=== PATIENT | female | born 1970 | race Caucasian/White ===

== ENCOUNTER 2017-08-14 18:20 | Inpatient (IN) | payer MEDICAID ==
[~2017-08-14] VITALS: Ht 175.3 cm; Wt 59.0 kg
[~2017-08-14 18:20] MED LIST: ASPI-1265 PO; FLUO20CA39 PO; INSU100V36 SQ; LANTUS SUBCUT
[2017-08-14] MEDS ORDERED: acetaminophen 325mg tablet PO STA (21:37)
[2017-08-14] MEDS ORDERED: CefTRIAXone 2gm/NS 100ml IVPB 100 ML IV ONE (21:40)
[2017-08-14] MEDS ORDERED: normal saline 1000ML IV soln IV ONE (21:40)
[2017-08-14] MEDS ORDERED: piperacillin/tazo 3.375gm/50ml 50 ML IV ONE (21:40)
[2017-08-14] MEDS ORDERED: CEFTRIAXONE IV ONE (21:55)
[2017-08-14] MEDS ORDERED: DEXTROSE IV ONE (21:55)
[2017-08-14 21:59] LABS: BASOPHILS % (AUTO) 0.3 % (0-1); EOSINOPHILS # (AUTO) 0.2 X10'3 (0-0.9); EOSINOPHILS % (AUTO) 1.6 % (0-6); HEMATOCRIT 26.7 % (35.0-45.0); HEMOGLOBIN 8.8 g/dl (12.0-16.0); LYMPHOCYTES # (AUTO) 1.5 X10'3 (1.1-4.8); LYMPHOCYTES % (AUTO) 11.4 % (21-51); MEAN CORPUSCULAR HEMOGLOBIN 26.1 PG (27.0-31.0); MEAN CORPUSCULAR HGB CONC 33.1 % (33.0-36.5); MEAN CORPUSCULAR VOLUME 78.7 FL (78-98); MEAN PLATELET VOLUME 6.9 FL (7.4-10.4); MONOCYTES # (AUTO) 0.5 X10'3 (0-0.9); MONOCYTES % (AUTO) 4.3 % (2-12); NEUTROPHILS # (AUTO) 10.5 X10'3 (1.8-7.7); NEUTROPHILS % (AUTO) 82.4 % (42-75); PLATELET COUNT 418 X10'3 (140-440); RED BLOOD COUNT 3.39 X10'6 (4.20-5.60); RED CELL DISTRIBUTION WIDTH 15.1 % (11.5-14.5); WHITE BLOOD COUNT 12.8 X10'3 (4.5-11.0)
[2017-08-14 22:11] LABS: PARTIAL THROMBOPLASTIN TIME 26 SECONDS (22-32); PROTHROMBIN TIME 10.7 SECONDS (9.0-12.0)
[2017-08-14 22:14] LABS: ALANINE AMINOTRANSFERASE 10 U/L (12-78); ALBUMIN 2.4 G/DL (3.4-5.0); ALBUMIN/GLOBULIN RATIO 0.5 (1.1-1.5); ALKALINE PHOSPHATASE 110 IU/L (46-116); ANION GAP 11 (8-16); ASPARTATE AMINO TRANSFERASE 0 U/L (10-37); BILIRUBIN,TOTAL 0.4 MG/DL (0.1-1.0); BLOOD UREA NITROGEN 29 MG/DL (7-18); BUN/CREATININE RATIO 16.3 (6.6-38.0); CALCIUM 8.6 MG/DL (8.5-10.1); CHLORIDE 98 MMOL/L (99-107); CREATININE 1.78 MG/DL (0.40-0.90); GLUCOSE 446 MG/DL (70-104); POTASSIUM 4.3 MMOL/L (3.5-5.1); SODIUM 134 MMOL/L (135-145); TOTAL CARBON DIOXIDE 25.5 MMOL/L (24-32); TOTAL PROTEIN 6.9 G/DL (6.4-8.2); eGFR 31 ML/MIN
[2017-08-14] MEDS ORDERED: HYDR-565 PO (22:16)
[2017-08-15 00:49] LABS: COLOR,URINE Yellow (Yellow); GLUCOSE, URINE >=1000 mg/dl (Neg); KETONES,URINE Trace mg/dl (Neg); LEUKOCYTE ESTERASE ,URINE Negative (Neg); NITRITES, URINE Negative (Neg); OCCULT BLOOD,URINE Negative (Neg); PROTEIN,URINE 100 mg/dl (Neg)
[2017-08-15] MEDS ORDERED: insulin glargine (Lantus) pen - multi-dose SQ ONE ×2 (00:50→02:05)
[2017-08-15 00:51] LABS: UA COLLECTION TYPE STRAIGHT CATH
[2017-08-15 01:11] LABS: FINE GRANULAR CAST 0-3 /LPF (NEGATIVE); SQUAMOUS EPITHELIAL CELL,UR FEW /LPF (FEW)
[2017-08-15 01:14] LABS: AMORPHOUS URATES 3+; CLARITY,URINE SLIGHTLY CLOUDY (Clear)
[2017-08-15 01:15] LABS: BACTERIA,URINE NONE SEEN /HPF (Neg); RBC,URINE 0-2 /HPF (0-2); WBC,URINE 0-4 /HPF (0-4)
[2017-08-15 01:16] LABS: RENAL CELLS, URINE FEW /HPF
[2017-08-15 01:21] LABS: URINE HCG NEGATIVE (NEG)
[2017-08-15] MEDS ORDERED: Insulin Detemir pen SQ ONE ×2 (01:34→02:05)
[2017-08-15] MEDS ORDERED: iohexol 300mg/ml 100ml inj. ONE (01:38)
[2017-08-15] MEDS ORDERED: insulin regular, human 10 units/0.1 ml syringe SQ ONE (01:45)
[2017-08-15] MEDS ORDERED: MESSAGE TO PHARMACY PO ONE (03:15)
[2017-08-15] MEDS ORDERED: dextrose ORAL solution 15 GM/59 ML bottle PO PRN (03:15)
[2017-08-15] MEDS ORDERED: vancomycin/NS 1 GM ADD-VANTAGE 250 ML IV ONE (03:15)
[2017-08-15] MEDS ORDERED: ondansetron/PF 4mg/2ml inj IV PRN (03:15)
[2017-08-15] MEDS ORDERED: acetaminophen 325mg tablet PO PRN (03:15)
[2017-08-15] MEDS ORDERED: mag hydrox/Alum hydrox/simeth 30ml oral suspension PO PRN (03:15)
[2017-08-15] MEDS ORDERED: glucagon, human recombinant 1mg kit SUBCUT PRN (03:15)
[2017-08-15] MEDS ORDERED: magnesium hydroxide 30ml (MOM) UD suspension PO PRN (03:15)
[2017-08-15] MEDS ORDERED: dextrose 50%-water 50ml dispensing syringe IV PRN ×2 (03:15)
[2017-08-15] MEDS ORDERED: normal saline 1000ml 1,000 ML IV SCH (03:15)
[2017-08-15] MEDS: piperacillin/tazo 3.375gm/50ml 50 ML IV SCH ×4 (03:54→20:46)
[2017-08-15 04:50] VITALS: BP 136/78
[2017-08-15 06:40] VITALS: BP 117/68
[2017-08-15] MEDS: vancomycin/NS 1 GM ADD-VANTAGE 250 ML IV SCH (07:18)
[2017-08-15] MEDS: FLUoxetine 20mg capsule PO SCH (08:00)
[2017-08-15] MEDS: insulin Lispro (HumaLOG) vial - multi-dose SQ SCH (09:03)
[2017-08-15 10:50] VITALS: BP 131/73
[2017-08-15] MEDS ORDERED: dextrose 5%-water 1,000 ML IV SCH (11:10)
[2017-08-15] MEDS: dextrose 5%-normal saline 1,000 ML IV SCH ×2 (11:29→23:44)
[2017-08-15] MEDS: acetaminophen 325mg tablet PO PRN (11:33)
[2017-08-15 17:35] LABS: HEMOGLOBIN A1C 11.7 % (4.5-6.2)
[2017-08-15 19:38] VITALS: BP 107/71
[2017-08-15 20:00] VITALS: BP 107/71
[2017-08-15] MEDS: Insulin Detemir pen SQ SCH (20:46)
[2017-08-15] MEDS ORDERED: diphenhydrAMINE 25mg capsule PO PRN (20:55)
[2017-08-15] MEDS ORDERED: HYDROcodone/acetaminophen 5mg/325mg tablet PO PRN (22:35)
[2017-08-15] MEDS: HYDROcodone/acetaminophen 10/325mg tab PO PRN (23:46)
[2017-08-16] VITALS (15 sets, daily range): BP systolic 107–136; BP diastolic 56–94
[2017-08-16] MEDS: acetaminophen 325mg tablet PO PRN (00:22)
[2017-08-16] MEDS: piperacillin/tazo 3.375gm/50ml 50 ML IV SCH ×2 (02:45→07:21)
[2017-08-16 05:56] LABS: BASOPHILS % (AUTO) 0.2 % (0-1); EOSINOPHILS # (AUTO) 0.2 X10'3 (0-0.9); EOSINOPHILS % (AUTO) 4.1 % (0-6); HEMATOCRIT 22.4 % (35.0-45.0); HEMOGLOBIN 7.4 g/dl (12.0-16.0); LYMPHOCYTES # (AUTO) 0.6 X10'3 (1.1-4.8); LYMPHOCYTES % (AUTO) 10.7 % (21-51); MEAN CORPUSCULAR HEMOGLOBIN 26.2 PG (27.0-31.0); MEAN CORPUSCULAR VOLUME 79.2 FL (78-98); MEAN PLATELET VOLUME 7.3 FL (7.4-10.4); MONOCYTES # (AUTO) 0.4 X10'3 (0-0.9); MONOCYTES % (AUTO) 6.4 % (2-12); NEUTROPHILS # (AUTO) 4.5 X10'3 (1.8-7.7); NEUTROPHILS % (AUTO) 78.6 % (42-75); PLATELET COUNT 305 X10'3 (140-440); RED BLOOD COUNT 2.83 X10'6 (4.20-5.60); RED CELL DISTRIBUTION WIDTH 15.4 % (11.5-14.5); WHITE BLOOD COUNT 5.7 X10'3 (4.5-11.0)
[2017-08-16 07:20] LABS: ALBUMIN 1.7 G/DL (3.4-5.0); ANION GAP 13 (8-16); BLOOD UREA NITROGEN 26 MG/DL (7-18); BUN/CREATININE RATIO 14.7 (6.6-38.0); CALCIUM 7.5 MG/DL (8.5-10.1); CHLORIDE 103 MMOL/L (99-107); CREATININE 1.77 MG/DL (0.40-0.90); POTASSIUM 3.9 MMOL/L (3.5-5.1); SODIUM 137 MMOL/L (135-145); TOTAL CARBON DIOXIDE 20.9 MMOL/L (24-32); eGFR 31 ML/MIN
[2017-08-16] MEDS: LACTOBACILLUS RHAMNOSUS GG 15 billion unit sprinkle caps PO SCH (07:20)
[2017-08-16] MEDS: HYDROcodone/acetaminophen 10/325mg tab PO PRN ×2 (07:20→23:09)
[2017-08-16] MEDS: dextrose 5%-normal saline 1,000 ML IV SCH (07:21)
[2017-08-16] MEDS: vancomycin/NS 1 GM ADD-VANTAGE 250 ML IV SCH (07:21)
[2017-08-16] MEDS: FLUoxetine 20mg capsule PO SCH (07:21)
[2017-08-16 07:48] LABS: GLUCOSE 513 MG/DL (70-104)
[2017-08-16 09:56] LABS: C DIFF ANTIGEN SEE COMMENTS (NEGATIVE); C DIFF SPECIMEN=DIARRHEA? ACCEPTABLE; C DIFFICILE TOXINS A&B NEGATIVE (Neg)
[2017-08-16 11:37] LABS: C DIFF TOXIN (LAMP) POSITIVE (NEG)
[2017-08-16] MEDS: vancomycin 125mg/5ml ORAL solution 5ml UD bottle PO SCH ×2 (14:00→20:34)
[2017-08-16] MEDS: insulin Lispro (HumaLOG) vial - multi-dose SQ SCH ×3 (14:20→23:07)
[2017-08-16] MEDS ORDERED: LIDOcaine 1% 30ml vial 30 ML ONE (14:27)
[2017-08-16] MEDS ORDERED: BUPIVAcaine/PF 2.5 mg/ml (0.25%) 30ml vial ONE (14:27)
[2017-08-16] MEDS ORDERED: insulin regular, human 10 units/0.1 ml syringe IV ONE ×2 (16:45→19:10)
[2017-08-16] MEDS ORDERED: insulin regular, human 10 units/0.1 ml syringe ONE (16:45)
[2017-08-16] MEDS ORDERED: meperidine/PF 25mg/ml syringe IV ONE (17:50)
[2017-08-16] MEDS ORDERED: ringers solution, lacted 1,000 ML IV SCH (18:32)
[2017-08-16] MEDS ORDERED: ondansetron/PF 4mg/2ml inj IV PRN (18:35)
[2017-08-16] MEDS ORDERED: HYDROmorphone 1 mg/ml syringe IV PRN ×2 (18:35)
[2017-08-16] MEDS ORDERED: fentaNYL/PF 50MCG/1 ML 2ML syringe ONE ×3 (18:35→18:53)
[2017-08-16] MEDS ORDERED: meperidine/PF 25mg/ml syringe IV PRN ×2 (18:35)
[2017-08-16] MEDS ORDERED: midazolam 2 mg/2 ml injection ONE ×2 (18:38→18:39)
[2017-08-16] MEDS ORDERED: LIDOcaine 1%/PF (10mg/ml) 5ml vial ONE (18:39)
[2017-08-16] MEDS ORDERED: propofol inj 20 ML IV ONE (18:39)
[2017-08-16] MEDS: normal saline 1000ml 1,000 ML IV SCH ×2 (20:40→23:11)
[2017-08-16] MEDS: Insulin Detemir pen SQ SCH (23:05)
[2017-08-17] VITALS: BP 122/70
[2017-08-17] MEDS: vancomycin 125mg/5ml ORAL solution 5ml UD bottle PO SCH ×4 (02:05→20:07)
[2017-08-17 04:00] VITALS: BP 119/70
[2017-08-17 05:24] LABS: BASOPHILS % (AUTO) 0.7 % (0-1); EOSINOPHILS # (AUTO) 0.3 X10'3 (0-0.9); EOSINOPHILS % (AUTO) 4.6 % (0-6); HEMATOCRIT 22.5 % (35.0-45.0); HEMOGLOBIN 7.5 g/dl (12.0-16.0); LYMPHOCYTES # (AUTO) 1.4 X10'3 (1.1-4.8); LYMPHOCYTES % (AUTO) 21.4 % (21-51); MEAN CORPUSCULAR HEMOGLOBIN 26.3 PG (27.0-31.0); MEAN CORPUSCULAR HGB CONC 33.4 % (33.0-36.5); MEAN CORPUSCULAR VOLUME 78.8 FL (78-98); MEAN PLATELET VOLUME 6.9 FL (7.4-10.4); MONOCYTES # (AUTO) 0.6 X10'3 (0-0.9); MONOCYTES % (AUTO) 8.4 % (2-12); NEUTROPHILS # (AUTO) 4.4 X10'3 (1.8-7.7); NEUTROPHILS % (AUTO) 64.9 % (42-75); PLATELET COUNT 381 X10'3 (140-440); RED BLOOD COUNT 2.85 X10'6 (4.20-5.60); RED CELL DISTRIBUTION WIDTH 15.7 % (11.5-14.5); WHITE BLOOD COUNT 6.8 X10'3 (4.5-11.0)
[2017-08-17] MEDS: HYDROcodone/acetaminophen 10/325mg tab PO PRN ×5 (05:29→22:45)
[2017-08-17 05:49] LABS: ALBUMIN 1.7 G/DL (3.4-5.0); ANION GAP 7 (8-16); BLOOD UREA NITROGEN 26 MG/DL (7-18); BUN/CREATININE RATIO 18.4 (6.6-38.0); CALCIUM 7.6 MG/DL (8.5-10.1); CHLORIDE 107 MMOL/L (99-107); CREATININE 1.41 MG/DL (0.40-0.90); GLUCOSE 279 MG/DL (70-104); POTASSIUM 3.6 MMOL/L (3.5-5.1); SODIUM 137 MMOL/L (135-145); TOTAL CARBON DIOXIDE 23.5 MMOL/L (24-32); eGFR 40 ML/MIN
[2017-08-17] MEDS: vancomycin/NS 1 GM ADD-VANTAGE 250 ML IV SCH (08:53)
[2017-08-17] MEDS: FLUoxetine 20mg capsule PO SCH (08:53)
[2017-08-17] MEDS: LACTOBACILLUS RHAMNOSUS GG 15 billion unit sprinkle caps PO SCH (08:53)
[2017-08-17] MEDS: insulin Lispro (HumaLOG) vial - multi-dose SQ SCH ×3 (09:03→20:07)
[2017-08-17] MEDS: normal saline 1000ml 1,000 ML IV SCH ×2 (11:02→21:31)
[2017-08-17 18:00] VITALS: BP 114/69
[2017-08-17] MEDS: Insulin Detemir pen SQ SCH (22:59)
[2017-08-18] VITALS (10 sets, daily range): BP systolic 115–143; BP diastolic 62–87
[2017-08-18] MEDS: vancomycin 125mg/5ml ORAL solution 5ml UD bottle PO SCH ×4 (03:15→19:40)
[2017-08-18] MEDS: HYDROcodone/acetaminophen 10/325mg tab PO PRN ×5 (03:52→20:51)
[2017-08-18] MEDS: normal saline 1000ml 1,000 ML IV SCH ×2 (06:30→16:30)
[2017-08-18] MEDS ORDERED: VANCOMYCIN LEVEL IV ONE (06:30)
[2017-08-18 07:52] LABS: BASOPHILS % (AUTO) 0.3 % (0-1); EOSINOPHILS # (AUTO) 0.3 X10'3 (0-0.9); EOSINOPHILS % (AUTO) 4.1 % (0-6); HEMATOCRIT 25.5 % (35.0-45.0); HEMOGLOBIN 9.1 g/dl (12.0-16.0); LYMPHOCYTES # (AUTO) 1.4 X10'3 (1.1-4.8); LYMPHOCYTES % (AUTO) 21.7 % (21-51); MEAN CORPUSCULAR HEMOGLOBIN 28.8 PG (27.0-31.0); MEAN CORPUSCULAR HGB CONC 35.8 % (33.0-36.5); MEAN CORPUSCULAR VOLUME 80.5 FL (78-98); MEAN PLATELET VOLUME 6.8 FL (7.4-10.4); MONOCYTES # (AUTO) 0.1 X10'3 (0-0.9); MONOCYTES % (AUTO) 2.2 % (2-12); NEUTROPHILS # (AUTO) 4.6 X10'3 (1.8-7.7); NEUTROPHILS % (AUTO) 71.7 % (42-75); PLATELET COUNT 387 X10'3 (140-440); RED BLOOD COUNT 3.17 X10'6 (4.20-5.60); RED CELL DISTRIBUTION WIDTH 15.6 % (11.5-14.5); WHITE BLOOD COUNT 6.4 X10'3 (4.5-11.0)
[2017-08-18] MEDS: FLUoxetine 20mg capsule PO SCH (08:00)
[2017-08-18] MEDS: LACTOBACILLUS RHAMNOSUS GG 15 billion unit sprinkle caps PO SCH (08:00)
[2017-08-18] MEDS: vancomycin/NS 1 GM ADD-VANTAGE 250 ML IV SCH (08:01)
[2017-08-18 08:11] LABS: ALBUMIN 1.8 G/DL (3.4-5.0); ANION GAP 7 (8-16); BLOOD UREA NITROGEN 12 MG/DL (7-18); BUN/CREATININE RATIO 11.7 (6.6-38.0); CALCIUM 7.6 MG/DL (8.5-10.1); CHLORIDE 110 MMOL/L (99-107); CREATININE 1.03 MG/DL (0.40-0.90); GLUCOSE 302 MG/DL (70-104); POTASSIUM 4.1 MMOL/L (3.5-5.1); SODIUM 140 MMOL/L (135-145); TOTAL CARBON DIOXIDE 22.7 MMOL/L (24-32); VANCOMYCIN,TROUGH 9.4 UG/ML (6.0-14.0); eGFR 58 ML/MIN
[2017-08-18] MEDS: insulin Lispro (HumaLOG) vial - multi-dose SQ SCH ×2 (09:39→13:31)
[2017-08-18] MEDS: sulfamethoxazole/trimethoprim DS (800/160mg) tablet PO SCH ×2 (11:53→19:40)
[2017-08-18] MEDS: dextrose ORAL solution 15 GM/59 ML bottle PO PRN ×2 (11:58→12:21)
[2017-08-18] MEDS: Insulin Detemir pen SQ SCH (20:48)
[2017-08-19] VITALS: BP 130/81
[2017-08-19] MEDS: vancomycin 125mg/5ml ORAL solution 5ml UD bottle PO SCH ×4 (01:10→20:38)
[2017-08-19] MEDS: HYDROcodone/acetaminophen 10/325mg tab PO PRN ×5 (01:11→20:39)
[2017-08-19] MEDS: normal saline 1000ml 1,000 ML IV SCH ×3 (02:30→21:22)
[2017-08-19 03:47] LABS: BASOPHILS # (AUTO) 0.1 X10'3 (0-0.2); BASOPHILS % (AUTO) 1.2 % (0-1); EOSINOPHILS # (AUTO) 0.2 X10'3 (0-0.9); EOSINOPHILS % (AUTO) 3.8 % (0-6); HEMATOCRIT 24.2 % (35.0-45.0); HEMOGLOBIN 8.3 g/dl (12.0-16.0); LYMPHOCYTES # (AUTO) 1.9 X10'3 (1.1-4.8); MEAN CORPUSCULAR HEMOGLOBIN 27.8 PG (27.0-31.0); MEAN CORPUSCULAR HGB CONC 34.2 % (33.0-36.5); MEAN CORPUSCULAR VOLUME 81.3 FL (78-98); MEAN PLATELET VOLUME 6.5 FL (7.4-10.4); MONOCYTES # (AUTO) 0.5 X10'3 (0-0.9); MONOCYTES % (AUTO) 7.7 % (2-12); NEUTROPHILS # (AUTO) 3.5 X10'3 (1.8-7.7); NEUTROPHILS % (AUTO) 56.3 % (42-75); PLATELET COUNT 361 X10'3 (140-440); RED BLOOD COUNT 2.97 X10'6 (4.20-5.60); RED CELL DISTRIBUTION WIDTH 15.7 % (11.5-14.5); WHITE BLOOD COUNT 6.2 X10'3 (4.5-11.0)
[2017-08-19 04:14] LABS: ALBUMIN 1.9 G/DL (3.4-5.0); ANION GAP 6 (8-16); BLOOD UREA NITROGEN 11 MG/DL (7-18); BUN/CREATININE RATIO 10.7 (6.6-38.0); CALCIUM 7.8 MG/DL (8.5-10.1); CHLORIDE 109 MMOL/L (99-107); CREATININE 1.03 MG/DL (0.40-0.90); GLUCOSE 261 MG/DL (70-104); POTASSIUM 3.7 MMOL/L (3.5-5.1); SODIUM 140 MMOL/L (135-145); TOTAL CARBON DIOXIDE 24.7 MMOL/L (24-32); eGFR 58 ML/MIN
[2017-08-19] MEDS: FLUoxetine 20mg capsule PO SCH (07:47)
[2017-08-19] MEDS: LACTOBACILLUS RHAMNOSUS GG 15 billion unit sprinkle caps PO SCH (07:47)
[2017-08-19] MEDS: sulfamethoxazole/trimethoprim DS (800/160mg) tablet PO SCH (07:48)
[2017-08-19 08:09] VITALS: BP 125/76
[2017-08-19] MEDS: insulin Lispro (HumaLOG) vial - multi-dose SQ SCH ×4 (09:33→22:07)
[2017-08-19] MEDS ORDERED: fluconazole 100mg tablet PO ONE (10:50)
[2017-08-19 12:23] VITALS: BP 134/76
[2017-08-19] MEDS: NUT.TX.GLUC.INTOLER,LAC-FR,REG (BOOST GLUCOSE CONTROL) 237 ML PO SCH (18:10)
[2017-08-19 19:30] VITALS: BP 133/78
[2017-08-19] MEDS: Insulin Detemir pen SQ SCH (22:09)
[2017-08-20] VITALS: BP 136/79
[2017-08-20] MEDS: HYDROcodone/acetaminophen 10/325mg tab PO PRN ×4 (00:52→21:08)
[2017-08-20] MEDS: vancomycin 125mg/5ml ORAL solution 5ml UD bottle PO SCH ×4 (02:21→21:08)
[2017-08-20] MEDS: dextrose ORAL solution 15 GM/59 ML bottle PO PRN (04:40)
[2017-08-20 05:05] LABS: ALBUMIN 2.3 G/DL (3.4-5.0); ANION GAP 8 (8-16); BLOOD UREA NITROGEN 18 MG/DL (7-18); BUN/CREATININE RATIO 15.1 (6.6-38.0); CALCIUM 7.9 MG/DL (8.5-10.1); CHLORIDE 107 MMOL/L (99-107); CREATININE 1.19 MG/DL (0.40-0.90); GLUCOSE 60 MG/DL (70-104); POTASSIUM 3.9 MMOL/L (3.5-5.1); SODIUM 141 MMOL/L (135-145); TOTAL CARBON DIOXIDE 25.9 MMOL/L (24-32); eGFR 49 ML/MIN
[2017-08-20 05:43] LABS: BASOPHILS % (AUTO) 0.4 % (0-1); EOSINOPHILS # (AUTO) 0.2 X10'3 (0-0.9); EOSINOPHILS % (AUTO) 2.8 % (0-6); HEMATOCRIT 24.1 % (35.0-45.0); HEMOGLOBIN 8.4 g/dl (12.0-16.0); LYMPHOCYTES # (AUTO) 2.1 X10'3 (1.1-4.8); LYMPHOCYTES % (AUTO) 27.9 % (21-51); MEAN CORPUSCULAR HEMOGLOBIN 28.1 PG (27.0-31.0); MEAN CORPUSCULAR HGB CONC 34.7 % (33.0-36.5); MEAN CORPUSCULAR VOLUME 81.2 FL (78-98); MEAN PLATELET VOLUME 6.3 FL (7.4-10.4); MONOCYTES # (AUTO) 0.5 X10'3 (0-0.9); MONOCYTES % (AUTO) 6.3 % (2-12); NEUTROPHILS # (AUTO) 4.7 X10'3 (1.8-7.7); NEUTROPHILS % (AUTO) 62.6 % (42-75); PLATELET COUNT 396 X10'3 (140-440); RED BLOOD COUNT 2.97 X10'6 (4.20-5.60); RED CELL DISTRIBUTION WIDTH 15.6 % (11.5-14.5); WHITE BLOOD COUNT 7.5 X10'3 (4.5-11.0)
[2017-08-20] MEDS: fluconazole 100mg tablet PO SCH (06:54)
[2017-08-20] MEDS: LACTOBACILLUS RHAMNOSUS GG 15 billion unit sprinkle caps PO SCH (06:54)
[2017-08-20] MEDS: FLUoxetine 20mg capsule PO SCH (06:55)
[2017-08-20 07:33] VITALS: BP 123/75
[2017-08-20] MEDS: NUT.TX.GLUC.INTOLER,LAC-FR,REG (BOOST GLUCOSE CONTROL) 237 ML PO SCH ×4 (08:00→19:00)
[2017-08-20] MEDS: insulin Lispro (HumaLOG) vial - multi-dose SQ SCH ×3 (08:48→21:17)
[2017-08-20] MEDS: normal saline 1000ml 1,000 ML IV SCH ×2 (08:49→19:44)
[2017-08-20 11:21] VITALS: BP 131/82
[2017-08-20 20:00] VITALS: BP 129/83
[2017-08-20] MEDS: Insulin Detemir pen SQ SCH (21:16)
[2017-08-21] VITALS: BP 144/93
[2017-08-21] MEDS: vancomycin 125mg/5ml ORAL solution 5ml UD bottle PO SCH ×3 (01:31→14:24)
[2017-08-21] MEDS: HYDROcodone/acetaminophen 10/325mg tab PO PRN ×4 (01:35→17:29)
[2017-08-21 06:00] VITALS: BP 134/82
[2017-08-21 06:00] LABS: BASOPHILS % (AUTO) 0.4 % (0-1); EOSINOPHILS # (AUTO) 0.3 X10'3 (0-0.9); HEMOGLOBIN 8.2 g/dl (12.0-16.0); LYMPHOCYTES # (AUTO) 1.6 X10'3 (1.1-4.8); LYMPHOCYTES % (AUTO) 25.1 % (21-51); MEAN CORPUSCULAR HEMOGLOBIN 27.5 PG (27.0-31.0); MEAN CORPUSCULAR HGB CONC 34.1 % (33.0-36.5); MEAN CORPUSCULAR VOLUME 80.7 FL (78-98); MEAN PLATELET VOLUME 6.5 FL (7.4-10.4); MONOCYTES # (AUTO) 0.3 X10'3 (0-0.9); MONOCYTES % (AUTO) 5.1 % (2-12); NEUTROPHILS # (AUTO) 4.2 X10'3 (1.8-7.7); NEUTROPHILS % (AUTO) 65.4 % (42-75); PLATELET COUNT 340 X10'3 (140-440); RED BLOOD COUNT 2.98 X10'6 (4.20-5.60); RED CELL DISTRIBUTION WIDTH 15.7 % (11.5-14.5); WHITE BLOOD COUNT 6.4 X10'3 (4.5-11.0)
[2017-08-21 06:14] LABS: ALBUMIN 2.2 G/DL (3.4-5.0); ANION GAP 9 (8-16); BLOOD UREA NITROGEN 17 MG/DL (7-18); BUN/CREATININE RATIO 13.1 (6.6-38.0); CHLORIDE 108 MMOL/L (99-107); GLUCOSE 209 MG/DL (70-104); POTASSIUM 4.7 MMOL/L (3.5-5.1); SODIUM 139 MMOL/L (135-145); TOTAL CARBON DIOXIDE 22.2 MMOL/L (24-32); eGFR 44 ML/MIN
[2017-08-21] MEDS: fluconazole 100mg tablet PO SCH (08:08)
[2017-08-21] MEDS: normal saline 1000ml 1,000 ML IV SCH ×2 (08:08→15:43)
[2017-08-21] MEDS: LACTOBACILLUS RHAMNOSUS GG 15 billion unit sprinkle caps PO SCH (08:08)
[2017-08-21] MEDS: FLUoxetine 20mg capsule PO SCH (08:08)
[2017-08-21] MEDS: insulin Lispro (HumaLOG) vial - multi-dose SQ SCH (10:03)
[2017-08-21 11:00] VITALS: BP 149/86
[2017-08-21] MEDS: NUT.TX.GLUC.INTOLER,LAC-FR,REG (BOOST GLUCOSE CONTROL) 237 ML PO SCH (13:00)
[2017-08-22] MEDS ORDERED: VANCOMYCIN LEVEL IV ONE (18:30)
== END 2017-08-21 17:48 | disposition home or self-care (01) | DRG 710 ==
LOC: ER 18:21 → ED HOLD 08-15 03:15 → SUR 3N 08-15 03:52
PROVIDERS: ADMIT Internal Medicine; ATTEND Family Medicine
PROC: 0KBF0ZZ Excision of Right Trunk Muscle, Open Approach (ICD-10-PCS; principal; 2017-08-16 18:31)
PROC: 30233N1 Transfusion of Nonautologous Red Blood Cells into Peripheral Vein, Percutaneous Approach (ICD-10-PCS; 2017-08-18)
DX: A41.9 Sepsis, unspecified organism (principal); N17.9 Acute kidney failure, unspecified; E11.22 Type 2 diabetes mellitus with diabetic chronic kidney disease; A04.72 Enterocolitis due to Clostridium difficile, not specified as recurrent; D62 Acute posthemorrhagic anemia; E11.65 Type 2 diabetes mellitus with hyperglycemia; E11.40 Type 2 diabetes mellitus with diabetic neuropathy, unspecified; L02.31 Cutaneous abscess of buttock; L03.031 Cellulitis of right toe; J44.9 Chronic obstructive pulmonary disease, unspecified; I10 Essential (primary) hypertension; N18.9 Chronic kidney disease, unspecified; F32.9 Major depressive disorder, single episode, unspecified; Z72.0 Tobacco use; Z79.4 Long term (current) use of insulin; Z82.49 Family history of ischemic heart disease and other diseases of the circulatory system; Z86.14 Personal history of Methicillin resistant Staphylococcus aureus infection; Z87.01 Personal history of pneumonia (recurrent); Z88.5 Allergy status to narcotic agent; Z88.6 Allergy status to analgesic agent; Z79.82 Long term (current) use of aspirin; Z79.899 Other long term (current) drug therapy
CPT/HCPCS: 36415; 71045; 73660; 74176; 80048; 80053; 80202; 81001; 81025; 82948; 83036; 83605; 84145; 85025; 85610; 85730; 86870; 86880; 86885; 86900; 86901; 86920; 86922; 87040; 87070; 87075; 87077; 87324; 87449; 87493; 96365; 99285; A4615; A6212; A6213; A6253; A6266; A6446; A6449; A7000; J0696; J1815; J2001; J2175; J2250; J2543; J2704; J3010; J3370; J3490; J7030; J7042; J7120; P9016; Q9967

== ENCOUNTER 2017-12-01 23:16 | Emergency (ER) | payer MEDICAID ==
[~2017-12-01] VITALS: Ht 175.3 cm; Wt 68.1 kg
[~2017-12-01 23:16] MED LIST changes: +HYDR-565 PO; -INSU100V36 SQ; -LANTUS SUBCUT
[2017-12-01 23:19] VITALS: BP 154/96
== END 2017-12-02 01:00 | disposition home or self-care (01) ==
LOC: ER 23:17
DX: R04.0 Epistaxis (principal); H92.01 Otalgia, right ear; F17.200 Nicotine dependence, unspecified, uncomplicated; E11.9 Type 2 diabetes mellitus without complications; Z88.5 Allergy status to narcotic agent; Z79.82 Long term (current) use of aspirin; Z79.899 Other long term (current) drug therapy
CPT/HCPCS: 99281

== ENCOUNTER 2018-10-27 15:59 | Emergency (ER) | payer MEDICAID ==
[~2018-10-27] VITALS: Ht 175.3 cm; Wt 75.0 kg
[~2018-10-27 15:59] MED LIST changes: +CEPH250T PO; -FLUO20CA39 PO; +HUM10VIA SQ; -HYDR-565 PO; +LANTUS SQ
[2018-10-27 16:26] VITALS: BP 156/92
[2018-10-27 17:38] LABS: INR 0.9 INR; PROTHROMBIN TIME 9.4 SECONDS (9.0-12.0)
[2018-10-27 17:43] LABS: ALANINE AMINOTRANSFERASE 31 U/L (12-78); ALBUMIN 2.2 G/DL (3.4-5.0); ALBUMIN/GLOBULIN RATIO 0.5 (1.1-1.5); ALKALINE PHOSPHATASE 125 IU/L (46-116); ANION GAP 7 (8-16); ASPARTATE AMINO TRANSFERASE 39 U/L (10-37); BILIRUBIN,TOTAL 0.3 MG/DL (0.1-1.0); BLOOD UREA NITROGEN 18 MG/DL (7-18); BUN/CREATININE RATIO 14.4 (6.6-38.0); CALCIUM 7.9 MG/DL (8.5-10.1); CHLORIDE 105 MMOL/L (99-107); CREATININE 1.25 MG/DL (0.40-0.90); GLUCOSE 223 MG/DL (70-104); LIPASE 65 U/L (73-393); POTASSIUM 4.2 MMOL/L (3.5-5.1); SODIUM 140 MMOL/L (135-145); TOTAL CARBON DIOXIDE 28.5 MMOL/L (24-32); TOTAL PROTEIN 6.4 G/DL (6.4-8.2); eGFR 46 ML/MIN
[2018-10-27 17:53] LABS: BASOPHILS # (AUTO) 0.1 X10'3 (0-0.2); BASOPHILS % (AUTO) 1.2 % (0-1); EOSINOPHILS # (AUTO) 0.1 X10'3 (0-0.9); EOSINOPHILS % (AUTO) 1.3 % (0-6); HEMATOCRIT 24.9 % (35.0-45.0); HEMOGLOBIN 8.2 g/dl (12.0-16.0); LYMPHOCYTES # (AUTO) 1.8 X10'3 (1.1-4.8); MEAN CORPUSCULAR HEMOGLOBIN 29.2 PG (27.0-31.0); MEAN CORPUSCULAR HGB CONC 32.9 g/dL (33.0-36.5); MEAN CORPUSCULAR VOLUME 88.9 FL (78-98); MEAN PLATELET VOLUME 6.5 FL (7.4-10.4); MONOCYTES # (AUTO) 0.3 X10'3 (0-0.9); MONOCYTES % (AUTO) 6.6 % (2-12); NEUTROPHILS # (AUTO) 2.3 X10'3 (1.8-7.7); NEUTROPHILS % (AUTO) 50.9 % (42-75); PLATELET COUNT 242 X10'3 (140-440); RED BLOOD COUNT 2.81 X10'6 (4.20-5.60); RED CELL DISTRIBUTION WIDTH 15.4 % (11.5-14.5); WHITE BLOOD COUNT 4.5 X10'3 (4.5-11.0)
[2018-10-27 18:18] LABS: CLARITY,URINE CLOUDY (Clear); COLOR,URINE YELLOW (Yellow); GLUCOSE, URINE 100 mg/dl (Neg); KETONES,URINE NEGATIVE (Neg); LEUKOCYTE ESTERASE ,URINE SMALL (Neg); NITRITES, URINE POSITIVE (Neg); OCCULT BLOOD,URINE MODERATE (Neg); PROTEIN,URINE >=300 mg/dl (Neg); UROBILINOGEN,URINE 0.2 E.U/dL (0.2-1.0)
[2018-10-27 18:21] LABS: UA COLLECTION TYPE CLN CATCH MIDSTREAM
[2018-10-27 18:24] LABS: SQUAMOUS EPITHELIAL CELL,UR MANY /LPF (FEW)
[2018-10-27 18:26] LABS: BACTERIA,URINE FEW /HPF (Neg); FINE GRANULAR CAST 0-3 /LPF (NEGATIVE); HYALINE CASTS 0-3 /LPF (NEGATIVE); WBC,URINE 50-100 /HPF (0-4)
[2018-10-27 18:28] LABS: MUCUS STRANDS NONE SEEN /LPF (Neg); WBC CLUMPS,URINE FEW /HPF (NEGATIVE)
[2018-10-27] MEDS ORDERED: CEPH500C5 PO (19:05)
[2018-10-27] MEDS ORDERED: cephalexin 500mg capsule PO ONE (19:10)
== END 2018-10-27 19:25 | disposition home or self-care (01) ==
LOC: ER 15:59
DX: N39.0 Urinary tract infection, site not specified (principal); M79.89 Other specified soft tissue disorders; E11.9 Type 2 diabetes mellitus without complications; Z86.14 Personal history of Methicillin resistant Staphylococcus aureus infection; F17.200 Nicotine dependence, unspecified, uncomplicated; Z88.5 Allergy status to narcotic agent; Z79.82 Long term (current) use of aspirin; Z79.4 Long term (current) use of insulin; Z79.899 Other long term (current) drug therapy
CPT/HCPCS: 36415; 71045; 80053; 81001; 83690; 85025; 85610; 99284

== ENCOUNTER 2019-03-06 17:25 | Emergency (ER) | payer MEDICAID ==
[~2019-03-06] VITALS: Ht 175.3 cm; Wt 60.0 kg
[~2019-03-06 17:25] MED LIST changes: +CEPH500C5 PO
[2019-03-06 17:31] VITALS: BP 124/71
== END 2019-03-06 20:18 | disposition left against medical advice (07) ==
LOC: ER 17:26
DX: R42 Dizziness and giddiness (principal); E11.9 Type 2 diabetes mellitus without complications; Z53.21 Procedure and treatment not carried out due to patient leaving prior to being seen by health care provider
CPT/HCPCS: 93005

== ENCOUNTER 2019-03-09 13:32 | Inpatient (IN) | payer MEDICAID ==
[~2019-03-09] VITALS: Ht 175.3 cm; Wt 59.5 kg
[2019-03-09] MEDS ORDERED: normal saline 1000ML IV soln IVB ONE ×2 (14:00→15:05)
[2019-03-09 14:44] LABS: BASOPHILS # (AUTO) 0.1 X10'3 (0-0.2); EOSINOPHILS % (AUTO) 0.5 % (0-6); MEAN PLATELET VOLUME 6.5 FL (7.4-10.4)
[2019-03-09 14:46] LABS: BASOPHILS % (AUTO) 1.3 % (0-1); HEMATOCRIT 36.5 % (35.0-45.0); HEMOGLOBIN 12.5 g/dl (12.0-16.0); LYMPHOCYTES # (AUTO) 4.3 X10'3 (1.1-4.8); LYMPHOCYTES % (AUTO) 47.9 % (21-51); MEAN CORPUSCULAR HGB CONC 34.1 g/dL (33.0-36.5); MEAN CORPUSCULAR VOLUME 90.9 FL (78-98); MONOCYTES # (AUTO) 0.4 X10'3 (0-0.9); MONOCYTES % (AUTO) 4.8 % (2-12); NEUTROPHILS # (AUTO) 4.1 X10'3 (1.8-7.7); NEUTROPHILS % (AUTO) 45.5 % (42-75); PLATELET COUNT 318 X10'3 (140-440); RED BLOOD COUNT 4.02 X10'6 (4.20-5.60); RED CELL DISTRIBUTION WIDTH 14.8 % (11.5-14.5); WHITE BLOOD COUNT 9.1 X10'3 (4.5-11.0)
[2019-03-09 14:50] LABS: ALANINE AMINOTRANSFERASE 47 U/L (12-78); ALBUMIN 2.9 G/DL (3.4-5.0); ALBUMIN/GLOBULIN RATIO 0.6 (1.1-1.5); ALKALINE PHOSPHATASE 142 IU/L (46-116); ANION GAP 8 (8-16); ASPARTATE AMINO TRANSFERASE 24 U/L (10-37); BILIRUBIN,TOTAL 0.3 MG/DL (0.1-1.0); BLOOD UREA NITROGEN 38 MG/DL (7-18); BUN/CREATININE RATIO 17.4 (6.6-38.0); CALCIUM 8.8 MG/DL (8.5-10.1); CHLORIDE 100 MMOL/L (99-107); CREATININE 2.18 MG/DL (0.40-0.90); MAGNESIUM 2.7 MG/DL (1.5-2.4); SODIUM 136 MMOL/L (135-145); TOTAL CARBON DIOXIDE 27.7 MMOL/L (24-32); TOTAL PROTEIN 7.6 G/DL (6.4-8.2); eGFR 24 ML/MIN
[2019-03-09 14:52] LABS: GLUCOSE 178 MG/DL (70-104)
[2019-03-09] MEDS ORDERED: dextrose 50%-water 50ml dispensing syringe IV ONE (15:05)
[2019-03-09] MEDS ORDERED: insulin regular, human 10 units/0.1 ml syringe IV ONE (15:05)
[2019-03-09] MEDS ORDERED: furosemide 40mg/4ml inj IV ONE (15:05)
[2019-03-09] MEDS ORDERED: sodium polystyrene sulfonate 15gm/60ml oral suspension PO ONE (15:05)
[2019-03-09] MEDS ORDERED: magnesium 2GM in 50ml NS 50 ML IV PRN (15:30)
[2019-03-09] MEDS ORDERED: magnesium Cl slow-release 64mg tablet PO PRN (15:30)
[2019-03-09] MEDS ORDERED: ondansetron/PF 4mg/2ml inj IV PRN (15:30)
[2019-03-09] MEDS ORDERED: potassium Cl 20 mEq SR tablet PO PRN ×2 (15:30)
[2019-03-09] MEDS ORDERED: magnesium 4gm in 100ml NS 100 ML IV PRN (15:30)
[2019-03-09] MEDS ORDERED: docusate sod 100mg capsule PO PRN (15:30)
[2019-03-09] MEDS ORDERED: acetaminophen 325mg tablet PO PRN (15:30)
[2019-03-09] MEDS ORDERED: potassium CL 10mEq/100ml bag 100 ML IV PRN ×2 (15:30)
[2019-03-09 15:36] LABS: CLARITY,URINE SLIGHTLY CLOUDY (Clear); COLOR,URINE YELLOW (Yellow); GLUCOSE, URINE >=1000 mg/dl (Neg); KETONES,URINE TRACE mg/dl (Neg); LEUKOCYTE ESTERASE ,URINE NEGATIVE (Neg); NITRITES, URINE NEGATIVE (Neg); OCCULT BLOOD,URINE TRACE-INTACT (Neg); PH,URINE 5.5 (4.8-8.0); PROTEIN,URINE 100 mg/dl (Neg); UROBILINOGEN,URINE 0.2 E.U/dL (0.2-1.0)
[2019-03-09 15:38] LABS: UA COLLECTION TYPE CLN CATCH MIDSTREAM
[2019-03-09] MEDS ORDERED: MESSAGE TO PHARMACY PO ONE (15:40)
[2019-03-09] MEDS ORDERED: dextrose ORAL solution 15 GM/59 ML bottle PO PRN ×2 (15:40)
[2019-03-09] MEDS ORDERED: dextrose 50%-water 50ml dispensing syringe IV PRN ×2 (15:40)
[2019-03-09] MEDS ORDERED: glucagon, human recombinant 1mg kit SUBCUT PRN (15:40)
[2019-03-09 15:54] LABS: TOTAL CELLS COUNTED 100
[2019-03-09 15:55] LABS: PLATELET ESTIMATE NORMAL; POLYCHROMASIA FEW; STOMATOCYTES 1+
[2019-03-09 16:11] LABS: HEMOGLOBIN A1C 9.7 % (4.5-6.2)
[2019-03-09 16:16] LABS: BACTERIA,URINE FEW /HPF (Neg); RBC,URINE 0-2 /HPF (0-2); SQUAMOUS EPITHELIAL CELL,UR FEW /LPF (FEW); WBC,URINE 0-4 /HPF (0-4)
[2019-03-09 16:17] LABS: AMORPHOUS URATES 1+; MUCUS STRANDS FEW /LPF (Neg)
[2019-03-09] MEDS ORDERED: LISI10TA4 PO (16:33)
[2019-03-09] MEDS ORDERED: FLUO-1 PO (16:33)
[2019-03-09] MEDS ORDERED: INSU100I39 SQ (16:34)
[2019-03-09] MEDS ORDERED: INSU100I31 SQ (16:34)
[2019-03-09] MEDS: normal saline 1000ml 1,000 ML IV SCH (16:37)
[2019-03-09] MEDS ORDERED: METH10OR11 PO (16:39)
--- NOTE | 2019-03-09 17:57 | NUR ---
Patient arrived on unit. Vital signs obtainied, telemetry initiated.
[2019-03-09 18:12] LABS: ALANINE AMINOTRANSFERASE 36 U/L (12-78); ALBUMIN 2.3 G/DL (3.4-5.0); ALBUMIN/GLOBULIN RATIO 0.6 (1.1-1.5); ALKALINE PHOSPHATASE 112 IU/L (46-116); ANION GAP 7 (8-16); ASPARTATE AMINO TRANSFERASE 26 U/L (10-37); BILIRUBIN,TOTAL 0.2 MG/DL (0.1-1.0); BLOOD UREA NITROGEN 35 MG/DL (7-18); BUN/CREATININE RATIO 17.6 (6.6-38.0); CALCIUM 7.8 MG/DL (8.5-10.1); CHLORIDE 107 MMOL/L (99-107); CREATININE 1.99 MG/DL (0.40-0.90); GLUCOSE 88 MG/DL (70-104); POTASSIUM 4.5 MMOL/L (3.5-5.1); SODIUM 143 MMOL/L (135-145); TOTAL CARBON DIOXIDE 29.1 MMOL/L (24-32); TOTAL PROTEIN 5.9 G/DL (6.4-8.2); eGFR 27 ML/MIN
--- NOTE | 2019-03-09 18:12 | NUR ---
Received report from JOSIAS Peña. Patient is awake and alert on room air, in no apparent distress. Call light and items of frequent use within reach. Will continue to monitor.
--- NOTE | 2019-03-09 18:16 | NUR ---
Problems reprioritized. Patient report given, questions answered & plan of care reviewed with Magnolia FERRARA. Patient stable at [facility].
[2019-03-09 19:00] VITALS: BP 132/73
[2019-03-09] MEDS: heparin, porcine 5000 units/ml vial SQ SCH (19:15)
--- NOTE | 2019-03-09 21:36 | NUR ---
Patient BG level: 525mg/dL rechecked: 552 mg/dL. Jayesh Aqunio MD. Awaiting response.
[2019-03-09 22:00] VITALS: BP 133/72
[2019-03-09] MEDS: insulin glargine (Lantus) pen - multi-dose SQ SCH (22:18)
[2019-03-09] MEDS: insulin Lispro (HumaLOG) vial - multi-dose SQ SCH (22:20)
--- NOTE | 2019-03-09 22:20 | NUR ---
MD Miles called back. No change in orders. Stated to "continue the hyperglycemic protocol."
[2019-03-10] MEDS: normal saline 1000ml 1,000 ML IV SCH ×4 (01:29→23:30)
[2019-03-10 02:00] VITALS: BP 128/84
[2019-03-10 02:05] LABS: BASOPHILS # (AUTO) 0.1 X10'3 (0-0.2); BASOPHILS % (AUTO) 1.1 % (0-1); EOSINOPHILS # (AUTO) 0.1 X10'3 (0-0.9); EOSINOPHILS % (AUTO) 1.3 % (0-6); HEMATOCRIT 26.2 % (35.0-45.0); LYMPHOCYTES # (AUTO) 3.3 X10'3 (1.1-4.8); LYMPHOCYTES % (AUTO) 49.3 % (21-51); MEAN CORPUSCULAR HGB CONC 34.5 g/dL (33.0-36.5); MEAN CORPUSCULAR VOLUME 89.8 FL (78-98); MEAN PLATELET VOLUME 6.1 FL (7.4-10.4); MONOCYTES # (AUTO) 0.3 X10'3 (0-0.9); MONOCYTES % (AUTO) 5.2 % (2-12); NEUTROPHILS # (AUTO) 2.9 X10'3 (1.8-7.7); NEUTROPHILS % (AUTO) 43.1 % (42-75); PLATELET COUNT 213 X10'3 (140-440); RED BLOOD COUNT 2.91 X10'6 (4.20-5.60); RED CELL DISTRIBUTION WIDTH 14.6 % (11.5-14.5); WHITE BLOOD COUNT 6.7 X10'3 (4.5-11.0)
[2019-03-10 02:20] LABS: ALANINE AMINOTRANSFERASE 38 U/L (12-78); ALBUMIN 1.9 G/DL (3.4-5.0); ALBUMIN/GLOBULIN RATIO 0.5 (1.1-1.5); ALKALINE PHOSPHATASE 102 IU/L (46-116); ANION GAP 9 (8-16); ASPARTATE AMINO TRANSFERASE 34 U/L (10-37); BILIRUBIN,TOTAL 0.2 MG/DL (0.1-1.0); BLOOD UREA NITROGEN 33 MG/DL (7-18); BUN/CREATININE RATIO 15.8 (6.6-38.0); CALCIUM 7.3 MG/DL (8.5-10.1); CHLORIDE 104 MMOL/L (99-107); CREATININE 2.09 MG/DL (0.40-0.90); POTASSIUM 4.6 MMOL/L (3.5-5.1); SODIUM 138 MMOL/L (135-145); TOTAL CARBON DIOXIDE 25.3 MMOL/L (24-32); TOTAL PROTEIN 5.4 G/DL (6.4-8.2); eGFR 25 ML/MIN
[2019-03-10 02:35] LABS: GLUCOSE 268 MG/DL (70-104); MAGNESIUM 2.1 MG/DL (1.5-2.4)
--- NOTE | 2019-03-10 06:11 | NUR ---
Problems reprioritized. Patient report given, questions answered & plan of care reviewed with Caro RN with JOSIAS Daniel.
[2019-03-10 06:30] VITALS: BP 136/83
--- NOTE | 2019-03-10 06:30 | NUR ---
Patient in room PCU 3012. I have received report from Magnolia FERRARA and had the opportunity to ask questions and assume patient care.
--- NOTE | 2019-03-10 06:30 | NUR ---
Patient in room PCU 3012A. I have received report from Magnolia FERRARA and had the opportunity to ask questions and assume patient care.
[2019-03-10] MEDS ORDERED: METH5SOL PO (07:18)
[2019-03-10] MEDS: K and/or MAG REPLACEMENT MC SCH (08:00)
--- NOTE | 2019-03-10 08:27 | NUR ---
Called [facility] in [place] to confirm patients methadone dosage, which was 159 mg liquid PO daily. I let pharmacy know, and they said they will dispense out tablets ( our pharmacy only has 10 mg tabs) once they have order from Dr Charito Mcneill PAGER ID: [phone] MESSAGE: CINDY Elizondo. Rain Antoine 3012A. Confirmed with clinic that pt was taking 159 mg liquid methadone, PO daily. Our pharmacy said we have 10 mg tabs, and can do 16 tabs to make 160 mg daily. Pharmacy will initiate once they have your order
[2019-03-10] MEDS: insulin Lispro (HumaLOG) vial - multi-dose SQ SCH ×2 (09:32→19:19)
[2019-03-10] MEDS: FLUoxetine 20mg capsule PO SCH (10:02)
[2019-03-10] MEDS: heparin, porcine 5000 units/ml vial SQ SCH ×2 (10:03→21:00)
--- NOTE | 2019-03-10 10:48 | NUR ---
Paged Dr Mcneill PAGER ID: [phone] MESSAGE: Caro [phone]. RE: Rain Hinton 3012A. Pt is continuing to ask about methadone medication. Would you like the new order?
[2019-03-10 11:00] VITALS: BP 149/83
[2019-03-10 11:03] LABS: TOTAL PROTEIN,URINE RANDOM 121.7 MG/DL
[2019-03-10] MEDS: methadone 10mg tablet PO SCH (11:16)
[2019-03-10 14:01] LABS: ALBUMIN 2.1 G/DL (3.4-5.0); BLOOD UREA NITROGEN 31 MG/DL (7-18); CALCIUM 7.4 MG/DL (8.5-10.1); CHLORIDE 105 MMOL/L (99-107); CREATININE 1.72 MG/DL (0.40-0.90); POTASSIUM 5.1 MMOL/L (3.5-5.1); TOTAL CARBON DIOXIDE 28.7 MMOL/L (24-32); eGFR 32 ML/MIN
[2019-03-10 14:05] LABS: ANION GAP 4 (8-16); GLUCOSE 163 MG/DL (70-104); SODIUM 138 MMOL/L (135-145)
--- NOTE | 2019-03-10 14:06 | NUR ---
DM consult: Pt with A1c 9.7 seen at bedside. Noted that patient previously admitted March 2018 with A1c 11.4. Pt states she has been better managing her DM through diet by monitoring CHO intake and limiting sugar in her diet. Pt states she changed from regular soda to diet soda. A1c previously >14.0 1-2 years ago per pt. Pt with no questions at this time. Pt provided with written DM education with referral to outpatient DM class and RD contact information. Pt admit with hyperkalemia and acute renal failure likely secondary to volume depletion. Pt currently on a heart healthy CHO controlled diet with documented 100% PO intake meeting nutrient needs. Pt endorses a good appetite and is agreeable to double protein TID, d/w dietary. Pt denies food allergies, difficulty chewing/swallowing, or constipation/diarrhea. LB 03/09. Will continue to follow. Recommendations: 1) Continue heart healthy CHO controlled diet; monitor need for addition of renal diet 2) Double protein TID 3) Wt per rx Addendum: 03/10/19 at [address] Amended: Links added.
[2019-03-10 15:00] VITALS: BP 139/86
--- NOTE | 2019-03-10 18:35 | NUR ---
Jaren hire: I have reviewed and agree with all interventions, assessments performed and documented by Fredy FERRARA .
--- NOTE | 2019-03-10 18:36 | NUR ---
Problems reprioritized. Patient report given, questions answered & plan of care reviewed with Suraj FERRARA.
[2019-03-10 19:00] VITALS: BP 147/86
[2019-03-10] MEDS: insulin glargine (Lantus) pen - multi-dose SQ SCH (21:00)
[2019-03-10 23:00] VITALS: BP 129/76
[2019-03-11 03:00] VITALS: BP 143/80
[2019-03-11] MEDS: normal saline 1000ml 1,000 ML IV SCH (04:45)
[2019-03-11 06:00] VITALS: BP 134/81
--- NOTE | 2019-03-11 06:00 | NUR ---
Patient in room PCU 3012. I have received report from Suraj FERRARA and had the opportunity to ask questions and assume patient care.
[2019-03-11 06:15] LABS: ALANINE AMINOTRANSFERASE 43 U/L (12-78); ALBUMIN 1.9 G/DL (3.4-5.0); ALBUMIN/GLOBULIN RATIO 0.5 (1.1-1.5); ALKALINE PHOSPHATASE 104 IU/L (46-116); ANION GAP 9 (8-16); ASPARTATE AMINO TRANSFERASE 46 U/L (10-37); BILIRUBIN,TOTAL 0.2 MG/DL (0.1-1.0); BLOOD UREA NITROGEN 31 MG/DL (7-18); BUN/CREATININE RATIO 25.8 (6.6-38.0); CALCIUM 7.5 MG/DL (8.5-10.1); CHLORIDE 106 MMOL/L (99-107); POTASSIUM 4.7 MMOL/L (3.5-5.1); SODIUM 138 MMOL/L (135-145); TOTAL CARBON DIOXIDE 23.3 MMOL/L (24-32); TOTAL PROTEIN 5.4 G/DL (6.4-8.2); eGFR 48 ML/MIN
[2019-03-11 06:16] LABS: GLUCOSE 294 MG/DL (70-104)
[2019-03-11 06:22] LABS: BASOPHILS # (AUTO) 0.1 X10'3 (0-0.2); BASOPHILS % (AUTO) 1.4 % (0-1); EOSINOPHILS # (AUTO) 0.2 X10'3 (0-0.9); HEMATOCRIT 27.8 % (35.0-45.0); HEMOGLOBIN 9.4 g/dl (12.0-16.0); LYMPHOCYTES # (AUTO) 2.3 X10'3 (1.1-4.8); LYMPHOCYTES % (AUTO) 45.8 % (21-51); MEAN CORPUSCULAR HEMOGLOBIN 31.3 PG (27.0-31.0); MEAN CORPUSCULAR HGB CONC 33.8 g/dL (33.0-36.5); MEAN CORPUSCULAR VOLUME 92.6 FL (78-98); MEAN PLATELET VOLUME 7.1 FL (7.4-10.4); MONOCYTES # (AUTO) 0.3 X10'3 (0-0.9); MONOCYTES % (AUTO) 6.6 % (2-12); NEUTROPHILS # (AUTO) 2.2 X10'3 (1.8-7.7); NEUTROPHILS % (AUTO) 43.2 % (42-75); PLATELET COUNT 178 X10'3 (140-440); RED CELL DISTRIBUTION WIDTH 14.9 % (11.5-14.5)
[2019-03-11] MEDS: FLUoxetine 20mg capsule PO SCH (07:34)
[2019-03-11] MEDS: heparin, porcine 5000 units/ml vial SQ SCH (07:35)
[2019-03-11] MEDS: methadone 10mg tablet PO SCH (07:36)
[2019-03-11] MEDS: K and/or MAG REPLACEMENT MC SCH (08:00)
--- NOTE | 2019-03-11 09:50 | NUR ---
Patient discharged stable to home. Discharge instructions given to patient verbally and written. All personal belongings returned to patient. PIV x1 removed, canula intact. 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 No new prescriptions to phone in. Patient left independently to private vehicle as she didn't want to wait for wheelchair.
[2019-03-11] MEDS: insulin Lispro (HumaLOG) vial - multi-dose SQ SCH (09:55)
== END 2019-03-11 10:10 | disposition home or self-care (01) | DRG 469 ==
LOC: ER 13:34 → PCU 3S 17:39 → CMPBEDREQ 20:27
PROVIDERS: ADMIT Family Medicine; ATTEND Family Medicine
DX: N17.0 Acute kidney failure with tubular necrosis (principal); E11.21 Type 2 diabetes mellitus with diabetic nephropathy; E87.5 Hyperkalemia; F11.20 Opioid dependence, uncomplicated; E11.22 Type 2 diabetes mellitus with diabetic chronic kidney disease; D63.8 Anemia in other chronic diseases classified elsewhere; F32.9 Major depressive disorder, single episode, unspecified; E86.0 Dehydration; F17.210 Nicotine dependence, cigarettes, uncomplicated; N18.9 Chronic kidney disease, unspecified; Z79.4 Long term (current) use of insulin; Z80.1 Family history of malignant neoplasm of trachea, bronchus and lung; Z82.49 Family history of ischemic heart disease and other diseases of the circulatory system; Z98.891 History of uterine scar from previous surgery; Z88.5 Allergy status to narcotic agent; Z79.899 Other long term (current) drug therapy
CPT/HCPCS: 36415; 71045; 76775; 80048; 80053; 81001; 82570; 82948; 83036; 83735; 83880; 83935; 84156; 84300; 84484; 85025; 87081; 93005; 96361; 96374; 96375; 97116; 97161; 99285; G0378; J1644; J1815; J1940; J7030

== ENCOUNTER 2019-03-21 20:19 | Emergency (ER) | payer MEDICAID ==
[~2019-03-21] VITALS: Ht 172.7 cm; Wt 59.0 kg
[~2019-03-21 20:19] MED LIST changes: -ASPI-1265 PO; -CEPH250T PO; -CEPH500C5 PO; +FLUO-1 PO; -HUM10VIA SQ; +INSU100I31 SQ; +INSU100I39 SQ; -LANTUS SQ; +METH5SOL PO
[2019-03-21] MEDS ORDERED: insulin Lispro (HumaLOG) vial - multi-dose SQ ONE (20:40)
[2019-03-21] MEDS ORDERED: insulin Lispro (HumaLOG) vial - multi-dose SQ SCH (20:40)
[2019-03-21] MEDS ORDERED: insulin regular, human 10 units/0.1 ml syringe IV ONE (20:40)
[2019-03-21] MEDS ORDERED: normal saline 1000ML IV soln IVB ONE ×2 (20:40→23:55)
[2019-03-21 21:34] LABS: BASOPHILS # (AUTO) 0.1 X10'3 (0-0.2); BASOPHILS % (AUTO) 0.8 % (0-1); EOSINOPHILS % (AUTO) 0.3 % (0-6); HEMATOCRIT 31.7 % (35.0-45.0); HEMOGLOBIN 10.7 g/dl (12.0-16.0); LYMPHOCYTES # (AUTO) 2.2 X10'3 (1.1-4.8); LYMPHOCYTES % (AUTO) 27.5 % (21-51); MEAN CORPUSCULAR HEMOGLOBIN 31.5 PG (27.0-31.0); MEAN CORPUSCULAR HGB CONC 33.8 g/dL (33.0-36.5); MEAN CORPUSCULAR VOLUME 93.2 FL (78-98); MEAN PLATELET VOLUME 6.5 FL (7.4-10.4); MONOCYTES # (AUTO) 0.4 X10'3 (0-0.9); MONOCYTES % (AUTO) 4.6 % (2-12); NEUTROPHILS # (AUTO) 5.2 X10'3 (1.8-7.7); NEUTROPHILS % (AUTO) 66.8 % (42-75); PLATELET COUNT 337 X10'3 (140-440); RED BLOOD COUNT 3.41 X10'6 (4.20-5.60); RED CELL DISTRIBUTION WIDTH 15.3 % (11.5-14.5); WHITE BLOOD COUNT 7.8 X10'3 (4.5-11.0)
[2019-03-21 21:55] LABS: ALANINE AMINOTRANSFERASE 41 U/L (12-78); ALBUMIN 2.4 G/DL (3.4-5.0); ALBUMIN/GLOBULIN RATIO 0.6 (1.1-1.5); ALKALINE PHOSPHATASE 135 IU/L (46-116); ANION GAP 17 (8-16); ASPARTATE AMINO TRANSFERASE 25 U/L (10-37); BILIRUBIN,TOTAL 0.5 MG/DL (0.1-1.0); BLOOD UREA NITROGEN 57 MG/DL (7-18); BUN/CREATININE RATIO 23.4 (6.6-38.0); CALCIUM 8.2 MG/DL (8.5-10.1); CHLORIDE 91 MMOL/L (99-107); CREATININE 2.44 MG/DL (0.40-0.90); MAGNESIUM 2.2 MG/DL (1.5-2.4); POTASSIUM 5.6 MMOL/L (3.5-5.1); SODIUM 129 MMOL/L (135-145); TOTAL CARBON DIOXIDE 21.2 MMOL/L (24-32); TOTAL PROTEIN 6.7 G/DL (6.4-8.2); eGFR 21 ML/MIN
[2019-03-21 22:09] LABS: GLUCOSE 586 MG/DL (70-104)
--- NOTE | 2019-03-21 23:32 | NUR ---
Pt given sugar free jello-o for PO challenge, pt tolerated well. no c/o n/v
[2019-03-22 01:38] LABS: ALBUMIN 1.8 G/DL (3.4-5.0); ANION GAP 10 (8-16); BLOOD UREA NITROGEN 47 MG/DL (7-18); BUN/CREATININE RATIO 25.5 (6.6-38.0); CALCIUM 6.9 MG/DL (8.5-10.1); CHLORIDE 105 MMOL/L (99-107); CREATININE 1.84 MG/DL (0.40-0.90); POTASSIUM 5.1 MMOL/L (3.5-5.1); SODIUM 137 MMOL/L (135-145); TOTAL CARBON DIOXIDE 22.1 MMOL/L (24-32); eGFR 29 ML/MIN
[2019-03-22 01:39] LABS: GLUCOSE 195 MG/DL (70-104)
[2019-03-22 01:59] VITALS: BP 120/66
== END 2019-03-22 02:03 | disposition home or self-care (01) ==
LOC: ER 20:20
DX: E11.65 Type 2 diabetes mellitus with hyperglycemia (principal); E87.5 Hyperkalemia; E11.22 Type 2 diabetes mellitus with diabetic chronic kidney disease; N18.9 Chronic kidney disease, unspecified; Z98.890 Other specified postprocedural states; Z88.5 Allergy status to narcotic agent; Z79.899 Other long term (current) drug therapy; Z79.4 Long term (current) use of insulin
CPT/HCPCS: 36415; 80048; 80053; 82948; 83735; 85025; 96361; 96374; 99283; J1815; J7030

== ENCOUNTER 2020-02-09 11:05 | Inpatient (IN) | payer MEDICAID ==
[~2020-02-09] VITALS: Ht 165.1 cm; Wt 73.4 kg
[2020-02-09] MEDS ORDERED: normal saline 1000ML IV soln IVB ONE ×2 (11:25→13:20)
[2020-02-09 11:39] LABS: BASOPHILS # (AUTO) 0.1 X10'3 (0-0.2); LYMPHOCYTES # (AUTO) 1.1 X10'3 (1.1-4.8); MONOCYTES # (AUTO) 0.7 X10'3 (0-0.9); NEUTROPHILS # (AUTO) 12.4 X10'3 (1.8-7.7); WHITE BLOOD COUNT 14.3 X10'3 (4.5-11.0)
[2020-02-09 11:40] LABS: BASOPHILS % (AUTO) 0.8 % (0-1); EOSINOPHILS % (AUTO) 0.2 % (0-6); LYMPHOCYTES % (AUTO) 7.7 % (21-51); MEAN PLATELET VOLUME 6.9 FL (7.4-10.4); MONOCYTES % (AUTO) 4.9 % (2-12); NEUTROPHILS % (AUTO) 86.4 % (42-75); PLATELET COUNT 320 X10'3 (140-440)
[2020-02-09 11:51] LABS: PARTIAL THROMBOPLASTIN TIME 28 SECONDS (22-32)
[2020-02-09 11:51] LABS: ABG BASE EXCESS -25.5 mmol/L (-2.0-2.0); ABG HCO3 3.8 mmol/L (22.0-26.0); ABG OXYGEN SATURATION 96.9 % (94-97); ABG PCO2 (T) 15.6 mmHg (32.0-45.0); FCOHb 0.3 % (0.0-3.9); FMetHb 0.2 % (0.0-1.5); FO2Hb 96.4 % (94-97); TOTAL HEMOGLOBIN 10.3 G/dl (12.0-16.0)
[2020-02-09 11:57] LABS: HEMOGLOBIN 7.8 g/dl (12.0-16.0); MEAN CORPUSCULAR HEMOGLOBIN 27.8 PG (27.0-31.0); MEAN CORPUSCULAR VOLUME 85.4 FL (78-98); RED BLOOD COUNT 2.81 X10'6 (4.20-5.60)
[2020-02-09 11:58] LABS: MEAN CORPUSCULAR HGB CONC 32.5 g/dL (33.0-36.5); RED CELL DISTRIBUTION WIDTH 15.4 % (11.5-14.5)
[2020-02-09 11:59] LABS: ALANINE AMINOTRANSFERASE 27 U/L (12-78); ALBUMIN/GLOBULIN RATIO 0.5 (1.1-1.5); ALKALINE PHOSPHATASE 151 IU/L (46-116); ANION GAP 33 (8-16); ASPARTATE AMINO TRANSFERASE 16 U/L (10-37); BILIRUBIN,TOTAL 0.7 MG/DL (0.1-1.0); BLOOD UREA NITROGEN 54 MG/DL (7-18); BUN/CREATININE RATIO 11.8 (6.6-38.0); CALCIUM 8.3 MG/DL (8.5-10.1); CHLORIDE 102 MMOL/L (99-107); CREATININE 4.57 MG/DL (0.40-0.90); POTASSIUM 5.9 MMOL/L (3.5-5.1); SODIUM 142 MMOL/L (135-145); TOTAL PROTEIN 6.4 G/DL (6.4-8.2); eGFR 10 ML/MIN
[2020-02-09 12:10] LABS: GLUCOSE 946 MG/DL (70-104)
[2020-02-09 12:11] LABS: TOTAL CARBON DIOXIDE 6.6 MMOL/L (24-32)
--- NOTE | 2020-02-09 12:13 | NUR ---
LINDSAY DALTON NOTIFIED OF BLADDER TEMPERATURE OF 33.5C.
[2020-02-09] MEDS ORDERED: insulin regular, human U-100 3ml vial - multi-dose SQ ONE ×2 (12:15→17:05)
[2020-02-09] MEDS ORDERED: CefTRIAXone/D5W-Rocephin 1gm 50 ML IV ONE (12:15)
[2020-02-09] MEDS ORDERED: azithromycin/NS 500mg/250ml 250 ML IV ONE (12:15)
--- NOTE | 2020-02-09 12:30 | NUR ---
jania goodrich initiated.
[2020-02-09 12:32] LABS: PLATELET ESTIMATE NORMAL; TOTAL CELLS COUNTED 100
[2020-02-09 12:33] LABS: ANISOCYTOSIS 1+
[2020-02-09 12:35] LABS: MAGNESIUM 2.9 MG/DL (1.5-2.4)
[2020-02-09 12:44] LABS: CLARITY,URINE CLOUDY (Clear); COLOR,URINE YELLOW (Yellow); GLUCOSE, URINE >=1000 mg/dl (Neg); KETONES,URINE >=80 mg/dl (Neg); LEUKOCYTE ESTERASE ,URINE NEGATIVE (Neg); NITRITES, URINE NEGATIVE (Neg); OCCULT BLOOD,URINE MODERATE (Neg); PH,URINE 5.5 (4.8-8.0); PROTEIN,URINE >=300 mg/dl (Neg); UROBILINOGEN,URINE 0.2 E.U/dL (0.2-1.0)
[2020-02-09 12:49] LABS: UA COLLECTION TYPE FOLEY CATH
[2020-02-09 12:51] LABS: BACTERIA,URINE 3+ /HPF (Neg); RBC,URINE 0-2 /HPF (0-2); SQUAMOUS EPITHELIAL CELL,UR FEW /LPF (FEW); WBC,URINE 50-100 /HPF (0-4)
[2020-02-09 12:52] LABS: MUCUS STRANDS FEW /LPF (Neg)
[2020-02-09 12:56] LABS: URINE AMPHETAMINE SCREEN NEGATIVE (Neg); URINE BARBITUATE SCREEN NEGATIVE (Neg); URINE BENZODIAZEPINES SCREEN NEGATIVE (Neg); URINE CANNABINOID SCREEN NEGATIVE (Neg); URINE COCAINE SCREEN NEGATIVE (Neg); URINE METHADONE SCREEN POSITIVE (Neg); URINE OPIATE SCREEN POSITIVE (Neg); URINE PHENCYCLIDINE SCREEN NEGATIVE (Neg)
--- NOTE | 2020-02-09 13:55 | NUR ---
Pt transported to CT via [facility]cameron with tech.
[2020-02-09] MEDS: Insulin Reg/NS 100units/100mL 100 ML IV PRN (14:35)
[2020-02-09] MEDS ORDERED: vancomycin/NS 1 GM ADD-VANTAGE 250 ML IV ONE (15:10)
[2020-02-09] MEDS ORDERED: sodium bicarbonate (8.4%) inj. 50 MEQ in dextrose 5% water 500ml 250 ML IV PRN (15:26)
[2020-02-09] MEDS ORDERED: Insulin Reg/NS 100units/100mL 100 ML IV SCH (15:26)
[2020-02-09] MEDS ORDERED: sodium bicarbonate (8.4%) inj. 100 MEQ in dextrose 5% water 500ml 500 ML IV PRN (15:26)
[2020-02-09] MEDS ORDERED: potassium CL 20mEq in D5-1/2NS 1,000 ML IV PRN (15:26)
[2020-02-09] MEDS ORDERED: magnesium 4gm in 100ml NS 100 ML IV PRN (15:30)
[2020-02-09] MEDS ORDERED: magnesium Cl slow-release 64mg tablet PO PRN (15:30)
[2020-02-09] MEDS ORDERED: magnesium 2GM in 50ml NS 50 ML IV PRN (15:30)
[2020-02-09] MEDS ORDERED: Neutra Phos packet PO PRN (15:30)
[2020-02-09] MEDS ORDERED: potassium Cl 20 mEq SR tablet PO PRN ×4 (15:30)
[2020-02-09] MEDS ORDERED: acetaminophen 325mg tablet PO PRN ×2 (15:30)
[2020-02-09] MEDS ORDERED: magnesium hydroxide 30ml (MOM) UD suspension PO PRN (15:30)
[2020-02-09] MEDS ORDERED: insulin regular, human U-100 3ml vial - multi-dose IV PRN (15:30)
[2020-02-09] MEDS ORDERED: ondansetron/PF 4mg/2ml inj IV PRN (15:30)
[2020-02-09] MEDS ORDERED: LIDOcaine 2% 10ml TOPICAL JELLY (Urojet) TP ONE (15:30)
[2020-02-09] MEDS ORDERED: sodium phosphate inj. 30 MMOL in dextrose 5%-water 250 ML IV PRN (15:30)
[2020-02-09] MEDS ORDERED: sodium phosphate inj. 15 MMOL in dextrose 5%-water 250 ML IV PRN (15:30)
[2020-02-09] MEDS ORDERED: potassium CL 10mEq/100ml bag 100 ML IV PRN (15:30)
[2020-02-09 16:29] LABS: ALBUMIN 1.8 G/DL (3.4-5.0); ANION GAP 31 (8-16); BLOOD UREA NITROGEN 54 MG/DL (7-18); BUN/CREATININE RATIO 11.9 (6.6-38.0); CALCIUM 7.7 MG/DL (8.5-10.1); CHLORIDE 106 MMOL/L (99-107); CREATININE 4.54 MG/DL (0.40-0.90); SODIUM 144 MMOL/L (135-145); eGFR 10 ML/MIN
[2020-02-09] MEDS: normal saline 1000ml 1,000 ML IV SCH ×5 (16:47→23:26)
[2020-02-09 16:51] LABS: GLUCOSE 853 MG/DL (70-104)
[2020-02-09 16:52] LABS: TOTAL CARBON DIOXIDE 7.2 MMOL/L (24-32)
--- NOTE | 2020-02-09 16:53 | NUR ---
Received report from Sabina FERRARA, patient coming to 2046
[2020-02-09] MEDS: K, MAG and/or Phos replacement - Verify level? MC SCH (17:44)
[2020-02-09 18:00] VITALS: BP 125/67
[2020-02-09] MEDS: heparin, porcine 5000 units/ml vial SQ SCH (18:02)
[2020-02-09] MEDS: pantoprazole 40 MG vial IV SCH (18:02)
[2020-02-09 18:45] LABS: ALBUMIN 1.7 G/DL (3.4-5.0); ANION GAP 26 (8-16); BLOOD UREA NITROGEN 54 MG/DL (7-18); BUN/CREATININE RATIO 12.3 (6.6-38.0); CALCIUM 7.6 MG/DL (8.5-10.1); CHLORIDE 110 MMOL/L (99-107); SODIUM 146 MMOL/L (135-145); eGFR 11 ML/MIN
[2020-02-09 19:00] VITALS: BP 125/67
[2020-02-09 19:00] LABS: GLUCOSE 713 MG/DL (70-104)
[2020-02-09 20:00] VITALS: BP 141/79
[2020-02-09] MEDS ORDERED: K and/or MAG REPLACEMENT MC SCH (20:00)
[2020-02-09 21:00] VITALS: BP 141/73
[2020-02-09 22:00] VITALS: BP 154/72
[2020-02-09 23:00] VITALS: BP 162/74
[2020-02-09 23:11] LABS: ALANINE AMINOTRANSFERASE 25 U/L (12-78); ALBUMIN 1.8 G/DL (3.4-5.0); ALBUMIN/GLOBULIN RATIO 0.4 (1.1-1.5); ALKALINE PHOSPHATASE 131 IU/L (46-116); ANION GAP 19 (8-16); ASPARTATE AMINO TRANSFERASE 25 U/L (10-37); BILIRUBIN,TOTAL 0.3 MG/DL (0.1-1.0); BLOOD UREA NITROGEN 52 MG/DL (7-18); BUN/CREATININE RATIO 12.5 (6.6-38.0); CALCIUM 7.8 MG/DL (8.5-10.1); CHLORIDE 115 MMOL/L (99-107); CREATININE 4.16 MG/DL (0.40-0.90); MAGNESIUM 2.3 MG/DL (1.5-2.4); SODIUM 150 MMOL/L (135-145); TOTAL CARBON DIOXIDE 16.5 MMOL/L (24-32); TOTAL PROTEIN 6.3 G/DL (6.4-8.2); eGFR 11 ML/MIN
[2020-02-09 23:12] LABS: GLUCOSE 401 MG/DL (70-104); POTASSIUM 4.8 MMOL/L (3.5-5.1)
[2020-02-10] VITALS (25 sets, daily range): BP systolic 129–166; BP diastolic 53–82
[2020-02-10] MEDS: Insulin Reg/NS 100units/100mL 100 ML IV PRN ×3 (00:13→16:48)
[2020-02-10] MEDS: heparin, porcine 5000 units/ml vial SQ SCH ×3 (00:17→16:46)
--- NOTE | 2020-02-10 01:20 | NUR ---
RN Note -Called August Tab regarding pt blood sugar 166. OK to turn Insulin down to 6.8 as per DKA protocol.
[2020-02-10 03:25] LABS: BASOPHILS % (AUTO) 0.4 % (0-1); EOSINOPHILS % (AUTO) 0.1 % (0-6); HEMATOCRIT 22.8 % (35.0-45.0); HEMOGLOBIN 7.6 g/dl (12.0-16.0); LYMPHOCYTES # (AUTO) 0.6 X10'3 (1.1-4.8); LYMPHOCYTES % (AUTO) 6.6 % (21-51); MEAN CORPUSCULAR HEMOGLOBIN 27.4 PG (27.0-31.0); MEAN CORPUSCULAR HGB CONC 33.5 g/dL (33.0-36.5); MEAN CORPUSCULAR VOLUME 81.8 FL (78-98); MEAN PLATELET VOLUME 5.9 FL (7.4-10.4); MONOCYTES # (AUTO) 0.6 X10'3 (0-0.9); MONOCYTES % (AUTO) 7.6 % (2-12); NEUTROPHILS # (AUTO) 7.1 X10'3 (1.8-7.7); NEUTROPHILS % (AUTO) 85.3 % (42-75); PLATELET COUNT 286 X10'3 (140-440); RED BLOOD COUNT 2.79 X10'6 (4.20-5.60); RED CELL DISTRIBUTION WIDTH 15.3 % (11.5-14.5); WHITE BLOOD COUNT 8.4 X10'3 (4.5-11.0)
[2020-02-10] MEDS: normal saline 1000ml 1,000 ML IV SCH (03:26)
[2020-02-10 03:40] LABS: ALANINE AMINOTRANSFERASE 21 U/L (12-78); ALBUMIN 1.5 G/DL (3.4-5.0); ALBUMIN/GLOBULIN RATIO 0.4 (1.1-1.5); ALKALINE PHOSPHATASE 116 IU/L (46-116); ANION GAP 12 (8-16); ASPARTATE AMINO TRANSFERASE 25 U/L (10-37); BILIRUBIN,TOTAL 0.2 MG/DL (0.1-1.0); BLOOD UREA NITROGEN 47 MG/DL (7-18); BUN/CREATININE RATIO 12.9 (6.6-38.0); CALCIUM 7.3 MG/DL (8.5-10.1); CHLORIDE 120 MMOL/L (99-107); CREATININE 3.63 MG/DL (0.40-0.90); GLUCOSE 118 MG/DL (70-104); POTASSIUM 3.2 MMOL/L (3.5-5.1); SODIUM 153 MMOL/L (135-145); TOTAL CARBON DIOXIDE 20.8 MMOL/L (24-32); TOTAL PROTEIN 5.5 G/DL (6.4-8.2); eGFR 13 ML/MIN
[2020-02-10 03:42] LABS: MAGNESIUM 1.9 MG/DL (1.5-2.4); PHOSPHORUS 2.9 MG/DL (2.3-4.5); TROPONIN I 0.33 NG/ML (0.0-0.05)
[2020-02-10] MEDS: azithromycin/NS 500mg/250ml 250 ML IV SCH (08:00)
[2020-02-10] MEDS: FLUoxetine 20mg capsule PO SCH (08:00)
[2020-02-10] MEDS: CefTRIAXone/D5W-Rocephin 1gm 50 ML IV SCH (08:00)
[2020-02-10] MEDS: K, MAG and/or Phos replacement - Verify level? MC SCH (08:00)
--- NOTE | 2020-02-10 08:00 | NUR ---
asked Dr. Hughes about DKA protocol which he does not want used he asked to keep him posted and ask for orders as we go. He does not want the current 250ml hr of D5 1/2 and he asked for me to decrease the insulin drip as needed if the BS continues to decrease.
[2020-02-10] MEDS: pantoprazole 40 MG vial IV SCH (08:17)
[2020-02-10] MEDS: potassium CL 10mEq/100ml bag 100 ML IV PRN ×2 (08:18→12:50)
[2020-02-10] MEDS ORDERED: dextrose 50%-water 50ml dispensing syringe IV ONE (09:49)
--- NOTE | 2020-02-10 10:31 | NUR ---
BS 61 new orders received to decrease insulin drip from 3 to 1 ml per hour. Order received for 50% dextrose push to address the BS of 61. Will follow up and repeat BS test. Patient is now awake and eating and mentation seems to be improving.
[2020-02-10] MEDS ORDERED: METH10SO PO ×2 (12:37→12:41)
--- NOTE | 2020-02-10 13:18 | NUR ---
DM consult. Patient admitted with DKA, poorly controlled type 1 diabetes per MD note, admitted also with AMS and h/o heroin. Admitted with BG of 946 mg/dl. Need new A1c, d/w RN. Pt will need written DM education handout with verbal review. Currently documented as confused. Recommend: 1. continue carb controlled diet 2. written and verbal education handout when appropriate 3. bowel care as needed 4. weight per rx Addendum: 02/10/20 at [address] Amended: Links added.
[2020-02-10] MEDS: methadone 10mg tablet PO SCH ×2 (14:29→21:09)
--- NOTE | 2020-02-10 16:58 | NUR ---
BS 154 patient remains on 3ml per hr on the insulin drip per dr hughes, updated him on patients BS trends and addressed the IV fluids which were D5 1/2 NS and new order received to stop the fluids completely because patient is eating and drinking along with being more awake and alert, no further IV fluids ordered per Dr. Hughes.
[2020-02-10] MEDS: insulin glargine (Lantus) pen - multi-dose SQ SCH (21:12)
[2020-02-11] VITALS (17 sets, daily range): BP systolic 118–163; BP diastolic 62–92
[2020-02-11] MEDS: heparin, porcine 5000 units/ml vial SQ SCH ×4 (01:01→23:31)
[2020-02-11 05:35] LABS: BASOPHILS # (AUTO) 0.1 X10'3 (0-0.2); EOSINOPHILS # (AUTO) 0.3 X10'3 (0-0.9); EOSINOPHILS % (AUTO) 3.7 % (0-6); HEMOGLOBIN 7.1 g/dl (12.0-16.0); LYMPHOCYTES # (AUTO) 1.6 X10'3 (1.1-4.8); LYMPHOCYTES % (AUTO) 20.4 % (21-51); MEAN CORPUSCULAR HEMOGLOBIN 28.1 PG (27.0-31.0); MEAN CORPUSCULAR HGB CONC 33.3 g/dL (33.0-36.5); MEAN CORPUSCULAR VOLUME 84.4 FL (78-98); MEAN PLATELET VOLUME 6.6 FL (7.4-10.4); MONOCYTES # (AUTO) 0.4 X10'3 (0-0.9); MONOCYTES % (AUTO) 5.4 % (2-12); NEUTROPHILS # (AUTO) 5.3 X10'3 (1.8-7.7); NEUTROPHILS % (AUTO) 69.5 % (42-75); PLATELET COUNT 240 X10'3 (140-440); RED BLOOD COUNT 2.53 X10'6 (4.20-5.60); RED CELL DISTRIBUTION WIDTH 16.4 % (11.5-14.5); WHITE BLOOD COUNT 7.6 X10'3 (4.5-11.0)
[2020-02-11 05:52] LABS: ALANINE AMINOTRANSFERASE 18 U/L (12-78); ALBUMIN 1.3 G/DL (3.4-5.0); ALBUMIN/GLOBULIN RATIO 0.3 (1.1-1.5); ALKALINE PHOSPHATASE 108 IU/L (46-116); ANION GAP 12 (8-16); ASPARTATE AMINO TRANSFERASE 22 U/L (10-37); BILIRUBIN,TOTAL 0.2 MG/DL (0.1-1.0); BLOOD UREA NITROGEN 42 MG/DL (7-18); BUN/CREATININE RATIO 14.6 (6.6-38.0); CALCIUM 7.6 MG/DL (8.5-10.1); CHLORIDE 115 MMOL/L (99-107); CREATININE 2.88 MG/DL (0.40-0.90); GLUCOSE 224 MG/DL (70-104); MAGNESIUM 1.8 MG/DL (1.5-2.4); PHOSPHORUS 3.6 MG/DL (2.3-4.5); POTASSIUM 3.7 MMOL/L (3.5-5.1); SODIUM 146 MMOL/L (135-145); TOTAL CARBON DIOXIDE 19.1 MMOL/L (24-32); TOTAL PROTEIN 5.3 G/DL (6.4-8.2); eGFR 17 ML/MIN
[2020-02-11 06:05] LABS: HEMATOCRIT 21.4 % (35.0-45.0)
--- NOTE | 2020-02-11 06:31 | NUR ---
RN Note -MD Communication Called August regarding hemoglobin 7.1 and hematocrit 21.4, will order type and screen and repeat h&h
[2020-02-11] MEDS: FLUoxetine 20mg capsule PO SCH (07:23)
[2020-02-11] MEDS: methadone 10mg tablet PO SCH ×2 (07:27→21:11)
[2020-02-11] MEDS: CefTRIAXone/D5W-Rocephin 1gm 50 ML IV SCH (07:28)
[2020-02-11] MEDS: azithromycin/NS 500mg/250ml 250 ML IV SCH (07:28)
[2020-02-11] MEDS ORDERED: pantoprazole 40mg Tablet.DR PO SCH (07:30)
[2020-02-11] MEDS ORDERED: insulin Lispro (HumaLOG) vial - multi-dose SQ SCH (07:30)
[2020-02-11] MEDS: K, MAG and/or Phos replacement - Verify level? MC SCH (07:50)
[2020-02-11] MEDS ORDERED: methadone 10mg tablet PO SCH ×2 (08:00→14:15)
[2020-02-11] MEDS ORDERED: METHADONE PO SCH (08:00)
[2020-02-11 11:32] LABS: HEMATOCRIT 22.1 % (35.0-45.0); HEMOGLOBIN 7.3 g/dl (12.0-16.0); MEAN CORPUSCULAR HEMOGLOBIN 27.9 PG (27.0-31.0); MEAN CORPUSCULAR HGB CONC 33.1 g/dL (33.0-36.5); MEAN CORPUSCULAR VOLUME 84.4 FL (78-98); MEAN PLATELET VOLUME 6.2 FL (7.4-10.4); PLATELET COUNT 244 X10'3 (140-440); RED BLOOD COUNT 2.61 X10'6 (4.20-5.60); RED CELL DISTRIBUTION WIDTH 15.9 % (11.5-14.5)
--- NOTE | 2020-02-11 11:33 | NUR ---
Pt remains altered constant moaning at this time w/ difficulty drinking liquids from regular cups since spilling per RN; sippy cup TIDWM to be added. NICOLE d/w RN regarding updated A1C if MD agreeable since no order yet this admit and DKA DX w/ no recent A1C. Addendum: 02/11/20 at [address] Amended: Links added.
--- NOTE | 2020-02-11 11:38 | NUR ---
Patient in room ICU 2046 will be tranferred to U 3011. I have received report from Art RN and had the opportunity to ask questions and assume patient care.
--- NOTE | 2020-02-11 11:40 | NUR ---
Aldridge removed, report called to PCU. Pt will transfer after Physical Therapy works with her.
[2020-02-11 11:54] LABS: % IRON SATURATION 26 % (11-46); IRON 37 UG/DL (49-151); TOTAL IRON BINDING CAPACITY 141 UG/DL (259-388)
--- NOTE | 2020-02-11 12:22 | NUR ---
Pt blood glucose was 69, no hypoglycemic orders had been put in, so I gave her orange juice with sugar mixed in.
[2020-02-11] MEDS ORDERED: dextrose 50%-water 50ml dispensing syringe IV PRN ×2 (12:25)
[2020-02-11] MEDS ORDERED: glucagon, human recombinant 1mg kit SUBCUT PRN (12:25)
[2020-02-11] MEDS ORDERED: dextrose ORAL solution 15 GM/59 ML bottle PO PRN (12:25)
--- NOTE | 2020-02-11 14:12 | NUR ---
Pt to [facility], room 2319E
--- NOTE | 2020-02-11 14:21 | NUR ---
Looked through pt room, garbage and laundry looking for dentures. No dentures were found.
[2020-02-11] MEDS: insulin Lispro (HumaLOG) vial - multi-dose SQ SCH (17:49)
--- NOTE | 2020-02-11 18:00 | NUR ---
Patient in room PCU 3011. I have received report from Ana FERRARA and had the opportunity to ask questions and assume patient care.
--- NOTE | 2020-02-11 18:14 | NUR ---
Problems reprioritized. Patient report given, questions answered & plan of care reviewed with Rhianna FERRARA.
[2020-02-11] MEDS: insulin glargine (Lantus) pen - multi-dose SQ SCH (21:00)
[2020-02-11] MEDS: lactobacillus rhamnosus 10,000 MMU CELLS/CAPSULE PO SCH (21:10)
--- NOTE | 2020-02-11 22:00 | NUR ---
LOW BLOOD SUGAR 47 At 2100 blood sugar check the value was 47. Glucose Shot 30 mg was given, as well as yogurt and nely crackers, after 30 min the blood sugar was still below 100 and gave milk. Patient refused Lantus dose tonight as well. Will continue to monitor.
[2020-02-11] MEDS: dextrose ORAL solution 15 GM/59 ML bottle PO PRN (22:09)
[2020-02-12 02:00] VITALS: BP 158/83
[2020-02-12 05:44] LABS: BASOPHILS # (AUTO) 0.1 X10'3 (0-0.2); BASOPHILS % (AUTO) 1.3 % (0-1); EOSINOPHILS # (AUTO) 0.3 X10'3 (0-0.9); EOSINOPHILS % (AUTO) 6.2 % (0-6); HEMOGLOBIN 7.2 g/dl (12.0-16.0); LYMPHOCYTES # (AUTO) 1.4 X10'3 (1.1-4.8); LYMPHOCYTES % (AUTO) 29.1 % (21-51); MEAN CORPUSCULAR HEMOGLOBIN 27.8 PG (27.0-31.0); MEAN CORPUSCULAR HGB CONC 33.1 g/dL (33.0-36.5); MEAN PLATELET VOLUME 6.3 FL (7.4-10.4); MONOCYTES # (AUTO) 0.3 X10'3 (0-0.9); MONOCYTES % (AUTO) 5.8 % (2-12); NEUTROPHILS # (AUTO) 2.8 X10'3 (1.8-7.7); NEUTROPHILS % (AUTO) 57.6 % (42-75); PLATELET COUNT 201 X10'3 (140-440); RED BLOOD COUNT 2.59 X10'6 (4.20-5.60); RED CELL DISTRIBUTION WIDTH 16.2 % (11.5-14.5); WHITE BLOOD COUNT 4.9 X10'3 (4.5-11.0)
[2020-02-12 05:58] LABS: HEMATOCRIT 21.7 % (35.0-45.0)
[2020-02-12 06:00] VITALS: BP 161/84
--- NOTE | 2020-02-12 06:00 | NUR ---
critical H/H LABORER WHARF Guerrero notified of Hemoglobin 7.2 and Hematocrit 21.7. No orders given. Will continue to monitor patient.
[2020-02-12 06:15] LABS: ALANINE AMINOTRANSFERASE 20 U/L (12-78); ALBUMIN 1.5 G/DL (3.4-5.0); ALBUMIN/GLOBULIN RATIO 0.4 (1.1-1.5); ALKALINE PHOSPHATASE 115 IU/L (46-116); ANION GAP 13 (8-16); ASPARTATE AMINO TRANSFERASE 21 U/L (10-37); BILIRUBIN,TOTAL 0.1 MG/DL (0.1-1.0); BLOOD UREA NITROGEN 36 MG/DL (7-18); BUN/CREATININE RATIO 12.8 (6.6-38.0); CALCIUM 8.3 MG/DL (8.5-10.1); CHLORIDE 114 MMOL/L (99-107); CREATININE 2.81 MG/DL (0.40-0.90); PHOSPHORUS 5.2 MG/DL (2.3-4.5); POTASSIUM 4.4 MMOL/L (3.5-5.1); SODIUM 146 MMOL/L (135-145); TOTAL CARBON DIOXIDE 19.5 MMOL/L (24-32); TOTAL PROTEIN 5.6 G/DL (6.4-8.2); eGFR 18 ML/MIN
[2020-02-12 06:17] LABS: GLUCOSE 344 MG/DL (70-104)
--- NOTE | 2020-02-12 06:20 | NUR ---
Patient in room U 3011. I have received report from LEANNA FERRARA and had the opportunity to ask questions and assume patient care. PT SITTING UP ON SIDE OF BED. CONCERNED ABOUT LIVING SITUATION. STATES SHE LIVES IN MOBILE HOME WITH HER BROTHER. I WILL REQUEST SS CONSULT. PT PIV OCCLUDED. WILL REPLACE JUAN RAMON. Addendum: 02/12/20 at 0703 by Radha Pagan RN Amended: Links added.
--- NOTE | 2020-02-12 06:23 | NUR ---
Problems reprioritized. Patient report given, questions answered & plan of care reviewed with AM Charge nurse Meghann FERRARA.
[2020-02-12] MEDS: methadone 10mg tablet PO SCH ×2 (07:48→20:18)
[2020-02-12] MEDS: FLUoxetine 20mg capsule PO SCH (07:50)
[2020-02-12] MEDS: lactobacillus rhamnosus 10,000 MMU CELLS/CAPSULE PO SCH ×2 (07:50→20:18)
[2020-02-12] MEDS: heparin, porcine 5000 units/ml vial SQ SCH ×3 (07:51→23:51)
[2020-02-12] MEDS: insulin Lispro (HumaLOG) vial - multi-dose SQ SCH ×3 (07:56→13:23)
[2020-02-12] MEDS: K, MAG and/or Phos replacement - Verify level? MC SCH (08:00)
[2020-02-12] MEDS: CefTRIAXone/D5W-Rocephin 1gm 50 ML IV SCH (09:53)
[2020-02-12] MEDS: azithromycin/NS 500mg/250ml 250 ML IV SCH (10:01)
[2020-02-12 11:00] VITALS: BP 151/68
--- NOTE | 2020-02-12 14:37 | NUR ---
DM consult. Patient admitted with DKA, poorly controlled type 1 diabetes per MD note, admitted also with AMS and h/o heroin. Admitted with BG of 946 mg/dl. A1c 10.2; given written DM education handout with verbal review. Pt reports she knows what to do, is just having difficulty doing given her current situation. Encouraged to follow up with her PCP as well, she reports her last A1c was in the 14s. Good appetite and improving, today eating 100%. reports diarrhea, is agreeable to yogurt with dinner. Recommend: 1. continue carb controlled, mechanical soft, chopped 2. bowel care as needed 3. weight per rx Addendum: 02/12/20 at [address] Amended: Links added.
[2020-02-12 15:00] VITALS: BP 131/69
[2020-02-12] MEDS: dextrose ORAL solution 15 GM/59 ML bottle PO PRN (17:22)
[2020-02-12 18:00] VITALS: BP 157/76
--- NOTE | 2020-02-12 18:01 | NUR ---
1700 BS CHECK SHOWED BS OF 47. PT ALERT AND AWAKE. GLUCOSE SHOT ORAL GIVEN X 2. RECHECK BS OF 67. ONE GLUCOSE SHOT GIVEN X1. RECHECK 107. PT EATING DINNER NO DISTRESS.
--- NOTE | 2020-02-12 18:09 | NUR ---
Problems reprioritized. BEDSIDE Patient report given, questions answered & plan of care reviewed with LEANNA FERRARA. PT EATING. NO DISTRESS. Addendum: 02/12/20 at 1811 by Radha Pagan RN Amended: Links added.
--- NOTE | 2020-02-12 18:37 | NUR ---
Patient in room PCU 3011. I have received report from Meghann FERRARA at bedside and had the opportunity to ask questions and assume patient care.
[2020-02-12] MEDS: insulin glargine (Lantus) pen - multi-dose SQ SCH (20:16)
[2020-02-12 22:00] VITALS: BP 163/80
[2020-02-12] MEDS ORDERED: metoprolol tartrate 1mg/ml inj IV ONE (22:15)
--- NOTE | 2020-02-12 22:38 | NUR ---
Blood Pressure Patient's SBP has been trending in the 150-160s; SANIA Masters was contacted [facility] to treat or not since the patient is asymptomatic. The patient did state to me that she does have a history of hypertension but is unable to recall what she had taken for it before. SANIA Masters gave the order to push Metoprolol 5mg. Will continue to monitor.
[2020-02-13 02:00] VITALS: BP 158/85
[2020-02-13 05:34] LABS: BASOPHILS # (AUTO) 0.1 X10'3 (0-0.2); BASOPHILS % (AUTO) 1.3 % (0-1); EOSINOPHILS # (AUTO) 0.3 X10'3 (0-0.9); EOSINOPHILS % (AUTO) 4.8 % (0-6); HEMATOCRIT 22.2 % (35.0-45.0); HEMOGLOBIN 7.3 g/dl (12.0-16.0); LYMPHOCYTES # (AUTO) 2.2 X10'3 (1.1-4.8); LYMPHOCYTES % (AUTO) 39.2 % (21-51); MEAN CORPUSCULAR HGB CONC 32.8 g/dL (33.0-36.5); MEAN CORPUSCULAR VOLUME 85.5 FL (78-98); MEAN PLATELET VOLUME 6.5 FL (7.4-10.4); MONOCYTES # (AUTO) 0.3 X10'3 (0-0.9); MONOCYTES % (AUTO) 6.3 % (2-12); NEUTROPHILS # (AUTO) 2.7 X10'3 (1.8-7.7); NEUTROPHILS % (AUTO) 48.4 % (42-75); PLATELET COUNT 195 X10'3 (140-440); RED BLOOD COUNT 2.59 X10'6 (4.20-5.60); RED CELL DISTRIBUTION WIDTH 15.7 % (11.5-14.5); WHITE BLOOD COUNT 5.5 X10'3 (4.5-11.0)
[2020-02-13 05:41] LABS: ALANINE AMINOTRANSFERASE 21 U/L (12-78); ALBUMIN 1.6 G/DL (3.4-5.0); ALBUMIN/GLOBULIN RATIO 0.4 (1.1-1.5); ALKALINE PHOSPHATASE 117 IU/L (46-116); ANION GAP 10 (8-16); ASPARTATE AMINO TRANSFERASE 18 U/L (10-37); BILIRUBIN,TOTAL 0.2 MG/DL (0.1-1.0); BLOOD UREA NITROGEN 36 MG/DL (7-18); BUN/CREATININE RATIO 13.1 (6.6-38.0); CALCIUM 8.1 MG/DL (8.5-10.1); CHLORIDE 113 MMOL/L (99-107); CREATININE 2.74 MG/DL (0.40-0.90); GLUCOSE 233 MG/DL (70-104); MAGNESIUM 1.9 MG/DL (1.5-2.4); PHOSPHORUS 4.9 MG/DL (2.3-4.5); POTASSIUM 4.1 MMOL/L (3.5-5.1); SODIUM 145 MMOL/L (135-145); TOTAL CARBON DIOXIDE 22.5 MMOL/L (24-32); TOTAL PROTEIN 5.9 G/DL (6.4-8.2); eGFR 18 ML/MIN
[2020-02-13 06:00] VITALS: BP 145/75
--- NOTE | 2020-02-13 06:32 | NUR ---
Problems reprioritized. Patient report given, questions answered & plan of care reviewed with Radha FERRARA.
--- NOTE | 2020-02-13 06:32 | NUR ---
Patient in room PCU 3011. I have received report from Rocky FERRARA and had the opportunity to ask questions and assume patient care.
[2020-02-13] MEDS: K, MAG and/or Phos replacement - Verify level? MC SCH (08:00)
[2020-02-13] MEDS: lactobacillus rhamnosus 10,000 MMU CELLS/CAPSULE PO SCH ×2 (08:51→20:55)
[2020-02-13] MEDS: azithromycin 250mg tablet PO SCH (08:51)
[2020-02-13] MEDS: methadone 10mg tablet PO SCH ×2 (08:52→20:55)
[2020-02-13] MEDS: heparin, porcine 5000 units/ml vial SQ SCH ×2 (08:54→17:54)
[2020-02-13] MEDS: FLUoxetine 20mg capsule PO SCH (08:55)
[2020-02-13] MEDS: insulin Lispro (HumaLOG) vial - multi-dose SQ SCH ×3 (09:19→21:04)
[2020-02-13] MEDS: CefTRIAXone/D5W-Rocephin 1gm 50 ML IV SCH (09:37)
[2020-02-13 11:00] VITALS: BP 134/76
[2020-02-13 15:00] VITALS: BP_SYST 125; BP_SYST 138; BP_DIAS 60; BP_DIAS 74
[2020-02-13 15:33] LABS: OCCULT BLOOD STOOL POSITIVE (Neg)
[2020-02-13] MEDS: dextrose ORAL solution 15 GM/59 ML bottle PO PRN ×2 (15:33→15:47)
[2020-02-13 15:47] LABS: C DIFF ANTIGEN NEGATIVE (NEGATIVE); C DIFF SPECIMEN=DIARRHEA? ACCEPTABLE; C DIFFICILE TOXINS A&B NEGATIVE (Neg)
[2020-02-13 18:00] VITALS: BP 162/73
--- NOTE | 2020-02-13 19:04 | NUR ---
Patient in room PCU 3011. I have received report from BISI FERRARA and had the opportunity to ask questions and assume patient care.
--- NOTE | 2020-02-13 20:38 | NUR ---
I WASNT ABLE TO COVER PATIENTS DINNER TRAY WAS COLLECTED AND MEAL TICKET NOT FOUND, D/T HER BLD GLUCOSE DROPPING SO LOW EARLIER IN THE DAY, I WILL COVER HER AT HS IF NEEDED HER PRE DINNER GLUCOSE WAS 128. PATIENT WAS AGREEABLE TO THIS.
[2020-02-13] MEDS: insulin glargine (Lantus) pen - multi-dose SQ SCH (21:08)
[2020-02-13 22:00] VITALS: BP 145/74
[2020-02-14] VITALS (7 sets, daily range): BP systolic 138–168; BP diastolic 70–86
[2020-02-14] MEDS: heparin, porcine 5000 units/ml vial SQ SCH ×3 (01:25→17:06)
[2020-02-14 06:08] LABS: BASOPHILS # (AUTO) 0.1 X10'3 (0-0.2); BASOPHILS % (AUTO) 1.2 % (0-1); EOSINOPHILS # (AUTO) 0.2 X10'3 (0-0.9); RED CELL DISTRIBUTION WIDTH 15.7 % (11.5-14.5); WHITE BLOOD COUNT 5.4 X10'3 (4.5-11.0)
[2020-02-14 06:12] LABS: EOSINOPHILS % (AUTO) 4.5 % (0-6); HEMOGLOBIN 7.1 g/dl (12.0-16.0); LYMPHOCYTES # (AUTO) 2.5 X10'3 (1.1-4.8); LYMPHOCYTES % (AUTO) 46.7 % (21-51); MEAN CORPUSCULAR HGB CONC 33.2 g/dL (33.0-36.5); MEAN CORPUSCULAR VOLUME 84.2 FL (78-98); MEAN PLATELET VOLUME 6.6 FL (7.4-10.4); MONOCYTES # (AUTO) 0.3 X10'3 (0-0.9); MONOCYTES % (AUTO) 4.6 % (2-12); NEUTROPHILS # (AUTO) 2.3 X10'3 (1.8-7.7); PLATELET COUNT 190 X10'3 (140-440); RED BLOOD COUNT 2.52 X10'6 (4.20-5.60)
[2020-02-14 06:16] LABS: ALANINE AMINOTRANSFERASE 19 U/L (12-78); ALBUMIN 1.6 G/DL (3.4-5.0); ALBUMIN/GLOBULIN RATIO 0.4 (1.1-1.5); ALKALINE PHOSPHATASE 115 IU/L (46-116); ANION GAP 9 (8-16); ASPARTATE AMINO TRANSFERASE 18 U/L (10-37); BILIRUBIN,TOTAL 0.2 MG/DL (0.1-1.0); BLOOD UREA NITROGEN 30 MG/DL (7-18); BUN/CREATININE RATIO 11.7 (6.6-38.0); CALCIUM 8.2 MG/DL (8.5-10.1); CHLORIDE 110 MMOL/L (99-107); CREATININE 2.56 MG/DL (0.40-0.90); GLUCOSE 284 MG/DL (70-104); MAGNESIUM 1.8 MG/DL (1.5-2.4); PHOSPHORUS 4.4 MG/DL (2.3-4.5); POTASSIUM 4.1 MMOL/L (3.5-5.1); SODIUM 142 MMOL/L (135-145); TOTAL CARBON DIOXIDE 22.9 MMOL/L (24-32); TOTAL PROTEIN 5.9 G/DL (6.4-8.2); eGFR 20 ML/MIN
[2020-02-14 06:22] LABS: HEMATOCRIT 21.3 % (35.0-45.0)
--- NOTE | 2020-02-14 06:30 | NUR ---
Patient in room PCU 3011. I have received report from Lupis FERRARA and had the opportunity to ask questions and assume patient care.
--- NOTE | 2020-02-14 06:41 | NUR ---
Problems reprioritized. Patient report given, questions answered & plan of care reviewed with ANIL FERRARA.
--- NOTE | 2020-02-14 06:43 | NUR ---
RC'D CRITICAL HGB/HCT OF 7.1 AND 21.3. JANAE COLEMAN NOTIFIED. NO ORDERS.
[2020-02-14] MEDS: FLUoxetine 20mg capsule PO SCH (08:38)
[2020-02-14] MEDS: CefTRIAXone/D5W-Rocephin 1gm 50 ML IV SCH (08:38)
[2020-02-14] MEDS: azithromycin 250mg tablet PO SCH (08:39)
[2020-02-14] MEDS: lactobacillus rhamnosus 10,000 MMU CELLS/CAPSULE PO SCH (08:39)
[2020-02-14] MEDS ORDERED: methadone 5mg tablet PO SCH (08:49)
[2020-02-14] MEDS: insulin Lispro (HumaLOG) vial - multi-dose SQ SCH ×3 (08:55→22:23)
[2020-02-14] MEDS: K, MAG and/or Phos replacement - Verify level? MC SCH (08:57)
[2020-02-14] MEDS ORDERED: methadone 5mg tablet PO ONE (09:20)
[2020-02-14] MEDS ORDERED: loperamide 2mg capsule PO ONE (09:30)
[2020-02-14] MEDS ORDERED: loperamide 2mg capsule PO PRN (09:30)
[2020-02-14] MEDS: pantoprazole 40mg Tablet.DR PO SCH ×2 (09:48→20:37)
--- NOTE | 2020-02-14 18:37 | NUR ---
Problems reprioritized. Patient report given, questions answered & plan of care reviewed with Abril FERRARA. Patient stable at transfer of care.
[2020-02-14] MEDS: methadone 5mg tablet PO SCH (20:38)
[2020-02-14] MEDS: insulin glargine (Lantus) pen - multi-dose SQ SCH (22:23)
[2020-02-15] MEDS: heparin, porcine 5000 units/ml vial SQ SCH ×3 (00:47→16:43)
[2020-02-15 03:00] VITALS: BP 161/71
--- NOTE | 2020-02-15 06:25 | NUR ---
Patient in room PCU 3011. I have received report from Abril FERRARA and had the opportunity to ask questions and assume patient care.
[2020-02-15 07:04] VITALS: BP 172/87
[2020-02-15 07:25] LABS: ALANINE AMINOTRANSFERASE 20 U/L (12-78); ALBUMIN 1.7 G/DL (3.4-5.0); ALBUMIN/GLOBULIN RATIO 0.4 (1.1-1.5); ALKALINE PHOSPHATASE 116 IU/L (46-116); ANION GAP 10 (8-16); ASPARTATE AMINO TRANSFERASE 19 U/L (10-37); BILIRUBIN,TOTAL 0.2 MG/DL (0.1-1.0); BLOOD UREA NITROGEN 24 MG/DL (7-18); BUN/CREATININE RATIO 10.2 (6.6-38.0); CALCIUM 8.2 MG/DL (8.5-10.1); CHLORIDE 110 MMOL/L (99-107); CREATININE 2.36 MG/DL (0.40-0.90); GLUCOSE 157 MG/DL (70-104); MAGNESIUM 1.7 MG/DL (1.5-2.4); PHOSPHORUS 4.7 MG/DL (2.3-4.5); POTASSIUM 3.8 MMOL/L (3.5-5.1); SODIUM 144 MMOL/L (135-145); TOTAL CARBON DIOXIDE 23.9 MMOL/L (24-32); eGFR 22 ML/MIN
[2020-02-15] MEDS: K, MAG and/or Phos replacement - Verify level? MC SCH (08:00)
[2020-02-15] MEDS: azithromycin 250mg tablet PO SCH (08:23)
[2020-02-15] MEDS: FLUoxetine 20mg capsule PO SCH (08:23)
[2020-02-15] MEDS: pantoprazole 40mg Tablet.DR PO SCH ×2 (08:23→21:12)
[2020-02-15] MEDS: CefTRIAXone/D5W-Rocephin 1gm 50 ML IV SCH (08:24)
[2020-02-15] MEDS: insulin Lispro (HumaLOG) vial - multi-dose SQ SCH ×3 (08:46→18:54)
[2020-02-15 08:57] LABS: BASOPHILS # (AUTO) 0.1 X10'3 (0-0.2); EOSINOPHILS # (AUTO) 0.2 X10'3 (0-0.9); EOSINOPHILS % (AUTO) 3.5 % (0-6); HEMOGLOBIN 7.2 g/dl (12.0-16.0); LYMPHOCYTES # (AUTO) 1.6 X10'3 (1.1-4.8); LYMPHOCYTES % (AUTO) 28.5 % (21-51); MEAN CORPUSCULAR HGB CONC 33.5 g/dL (33.0-36.5); MEAN CORPUSCULAR VOLUME 83.6 FL (78-98); MEAN PLATELET VOLUME 6.5 FL (7.4-10.4); MONOCYTES # (AUTO) 0.3 X10'3 (0-0.9); MONOCYTES % (AUTO) 6.2 % (2-12); NEUTROPHILS # (AUTO) 3.4 X10'3 (1.8-7.7); NEUTROPHILS % (AUTO) 60.8 % (42-75); PLATELET COUNT 205 X10'3 (140-440); RED BLOOD COUNT 2.59 X10'6 (4.20-5.60); RED CELL DISTRIBUTION WIDTH 15.3 % (11.5-14.5); WHITE BLOOD COUNT 5.6 X10'3 (4.5-11.0)
[2020-02-15 09:07] LABS: HEMATOCRIT 21.6 % (35.0-45.0)
[2020-02-15 11:00] VITALS: BP 159/89
--- NOTE | 2020-02-15 12:27 | NUR ---
DIABETIC FOOT CARE EDUCATION PROVIDED BY WOUND CARE * Wash your feet daily with lukewarm water and soap. * Dry your feet well, especially between the toes. * Keep the skin moisturized with lotion, but do not apply it between the toes. * Check your feet for blisters, cuts or sores. * Use an emery board to shape your toenails even with the ends of your toes. * Change daily into clean, soft socks or stockings, not too big or too small. * Keep your feet warm and dry. * Preferably wear special padded socks and shoes that fit well. * Never walk barefoot indoors or outdoors. * Examine your shoes everyday for cracks, yeny, nails or anything that could hurt your feet. * Tell your doctor if you find any of these problems or have any concerns after examining your feet. WOUND INFECTION EDUCATION PROVIDED BY WOUND CARE 1. Patient instructed to call their primary doctor, or go the ED immediately if any of the following symptoms occur: * Increased pain in wound * Increase in drainage from the wound * Redness in the skin surrounding the wound * Warmth in the skin surrounding the wound * Bleeding from the wound * Temperature of 101 or greater 2. If any of these occur while in the hospital tell a nurse immediately. Addendum: 02/15/20 at 1228 by Valencia Maynard RN Amended: Links added.
[2020-02-15 15:00] VITALS: BP 151/77
[2020-02-15 18:00] VITALS: BP 167/80
--- NOTE | 2020-02-15 18:30 | NUR ---
Problems reprioritized. Patient report given, questions answered & plan of care reviewed with Elza FERRARA. Patient stable at transfer of care.
--- NOTE | 2020-02-15 19:21 | NUR ---
Patient in room PCU 3011. I have received report from Jacque FERRARA and had the opportunity to ask questions and assume patient care.
[2020-02-15] MEDS: methadone 5mg tablet PO SCH (21:13)
[2020-02-15] MEDS: insulin glargine (Lantus) pen - multi-dose SQ SCH (21:23)
[2020-02-15 22:00] VITALS: BP 158/78
[2020-02-16] VITALS (8 sets, daily range): BP systolic 147–189; BP diastolic 70–98
[2020-02-16] MEDS: heparin, porcine 5000 units/ml vial SQ SCH ×2 (00:31→08:00)
[2020-02-16 05:20] LABS: BASOPHILS % (AUTO) 0.7 % (0-1); EOSINOPHILS # (AUTO) 0.2 X10'3 (0-0.9); LYMPHOCYTES # (AUTO) 1.9 X10'3 (1.1-4.8); LYMPHOCYTES % (AUTO) 33.4 % (21-51); MEAN CORPUSCULAR HEMOGLOBIN 27.9 PG (27.0-31.0); MEAN CORPUSCULAR HGB CONC 33.9 g/dL (33.0-36.5); MEAN CORPUSCULAR VOLUME 82.4 FL (78-98); MEAN PLATELET VOLUME 6.4 FL (7.4-10.4); MONOCYTES # (AUTO) 0.4 X10'3 (0-0.9); MONOCYTES % (AUTO) 7.8 % (2-12); NEUTROPHILS # (AUTO) 3.1 X10'3 (1.8-7.7); NEUTROPHILS % (AUTO) 54.1 % (42-75); PLATELET COUNT 202 X10'3 (140-440); RED BLOOD COUNT 2.34 X10'6 (4.20-5.60); RED CELL DISTRIBUTION WIDTH 15.4 % (11.5-14.5); WHITE BLOOD COUNT 5.7 X10'3 (4.5-11.0)
[2020-02-16 05:36] LABS: ALANINE AMINOTRANSFERASE 16 U/L (12-78); ALBUMIN 1.6 G/DL (3.4-5.0); ALBUMIN/GLOBULIN RATIO 0.4 (1.1-1.5); ALKALINE PHOSPHATASE 103 IU/L (46-116); ANION GAP 8 (8-16); ASPARTATE AMINO TRANSFERASE 18 U/L (10-37); BILIRUBIN,TOTAL 0.2 MG/DL (0.1-1.0); BLOOD UREA NITROGEN 25 MG/DL (7-18); CALCIUM 7.7 MG/DL (8.5-10.1); CHLORIDE 110 MMOL/L (99-107); GLUCOSE 255 MG/DL (70-104); MAGNESIUM 1.7 MG/DL (1.5-2.4); PHOSPHORUS 5.1 MG/DL (2.3-4.5); POTASSIUM 3.8 MMOL/L (3.5-5.1); SODIUM 143 MMOL/L (135-145); TOTAL CARBON DIOXIDE 25.2 MMOL/L (24-32); TOTAL PROTEIN 5.5 G/DL (6.4-8.2); eGFR 20 ML/MIN
[2020-02-16 05:48] LABS: HEMATOCRIT 19.3 % (35.0-45.0); HEMOGLOBIN 6.5 g/dl (12.0-16.0)
--- NOTE | 2020-02-16 06:27 | NUR ---
Problems reprioritized. Patient report given, questions answered & plan of care reviewed with Jacque FERRARA.
--- NOTE | 2020-02-16 06:33 | NUR ---
Patient in room PCU 3011. I have received report from Elza FERRARA and had the opportunity to ask questions and assume patient care.
[2020-02-16] MEDS: FLUoxetine 20mg capsule PO SCH (07:50)
[2020-02-16] MEDS: pantoprazole 40mg Tablet.DR PO SCH ×2 (07:50→19:42)
[2020-02-16] MEDS: azithromycin 250mg tablet PO SCH (07:50)
[2020-02-16] MEDS: methadone 10mg tablet PO SCH ×2 (07:50→21:18)
[2020-02-16] MEDS: K, MAG and/or Phos replacement - Verify level? MC SCH (08:00)
[2020-02-16] MEDS: insulin Lispro (HumaLOG) vial - multi-dose SQ SCH ×3 (09:12→18:56)
[2020-02-16] MEDS: CefTRIAXone/D5W-Rocephin 1gm 50 ML IV SCH (09:20)
--- NOTE | 2020-02-16 14:57 | NUR ---
Reassessment: DKA resolved and CODIE gradually resolving although pt may have some CKD per MD notes. 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 Pt with steady 100% PO intake on CHO controlled diet meeting nutrient needs with adequate protein to promote wound healing. Attempted visit with pt at bedside to obtain food preferences and monitor need for nutrition intervention for satiety however pt was sleeping and did not wake with verbal cues. LBM 7. Previously with diarrhea and received PRN Imodium 02/13. No GI symptoms noted at this time. Pt negative for C.diff. Will continue to follow. Recommend: 1. continue carb controlled, mechanical soft, chopped diet 2. monitor need for additional protein for satiety 3. monitor renal labs 4. bowel care as needed 5. scaled weights per rx Addendum: 02/16/20 at [address] Amended: Links added.
[2020-02-16] MEDS ORDERED: PEG 3350/Na sulf,bicarb,Cl/KCl oral sol 4 liter bottle PO ONE (15:00)
[2020-02-16 16:10] LABS: HEMATOCRIT 27.5 % (35.0-45.0); HEMOGLOBIN 9.4 g/dl (12.0-16.0); MEAN CORPUSCULAR HEMOGLOBIN 28.7 PG (27.0-31.0); MEAN CORPUSCULAR HGB CONC 34.3 g/dL (33.0-36.5); MEAN CORPUSCULAR VOLUME 83.7 FL (78-98); MEAN PLATELET VOLUME 6.3 FL (7.4-10.4); PLATELET COUNT 195 X10'3 (140-440); RED BLOOD COUNT 3.28 X10'6 (4.20-5.60); RED CELL DISTRIBUTION WIDTH 15.7 % (11.5-14.5); WHITE BLOOD COUNT 4.9 X10'3 (4.5-11.0)
[2020-02-16] MEDS: mineral oil/petrolatum, white cream 113gm jar TP SCH (16:31)
[2020-02-16] MEDS ORDERED: epoetin 20,000 units/ml inj SQ SCH (17:15)
--- NOTE | 2020-02-16 18:00 | NUR ---
Patient in room PCU 3011. I have received report from Jacque FERRARA and had the opportunity to ask questions and assume patient care.
--- NOTE | 2020-02-16 18:41 | NUR ---
Problems reprioritized. Patient report given, questions answered & plan of care reviewed with Tianna FERRARA. Patient stable at transfer of care.
--- NOTE | 2020-02-16 19:19 | NUR ---
Pt has blood pressure of 188/98. Called [facility] Dr Masters. Received order to give 10mg hydralazine IV one time.
[2020-02-16] MEDS ORDERED: hydrALAZINE 20mg/ml inj. IV ONE (19:20)
[2020-02-16] MEDS: insulin glargine (Lantus) pen - multi-dose SQ SCH (21:25)
[2020-02-17] VITALS (10 sets, daily range): BP systolic 140–173; BP diastolic 70–90
[2020-02-17 03:00] LABS: BASOPHILS # (AUTO) 0.1 X10'3 (0-0.2); EOSINOPHILS # (AUTO) 0.3 X10'3 (0-0.9); EOSINOPHILS % (AUTO) 4.1 % (0-6); HEMOGLOBIN 7.7 g/dl (12.0-16.0); LYMPHOCYTES # (AUTO) 2.2 X10'3 (1.1-4.8); LYMPHOCYTES % (AUTO) 32.2 % (21-51); MEAN CORPUSCULAR HGB CONC 33.7 g/dL (33.0-36.5); MEAN CORPUSCULAR VOLUME 83.1 FL (78-98); MEAN PLATELET VOLUME 5.8 FL (7.4-10.4); MONOCYTES # (AUTO) 0.5 X10'3 (0-0.9); MONOCYTES % (AUTO) 7.7 % (2-12); NEUTROPHILS # (AUTO) 3.8 X10'3 (1.8-7.7); PLATELET COUNT 239 X10'3 (140-440); RED BLOOD COUNT 2.76 X10'6 (4.20-5.60); RED CELL DISTRIBUTION WIDTH 15.7 % (11.5-14.5); WHITE BLOOD COUNT 6.9 X10'3 (4.5-11.0)
[2020-02-17 03:12] LABS: ALANINE AMINOTRANSFERASE 17 U/L (12-78); ALBUMIN 1.8 G/DL (3.4-5.0); ALBUMIN/GLOBULIN RATIO 0.4 (1.1-1.5); ALKALINE PHOSPHATASE 108 IU/L (46-116); ANION GAP 8 (8-16); ASPARTATE AMINO TRANSFERASE 22 U/L (10-37); BILIRUBIN,TOTAL 0.2 MG/DL (0.1-1.0); BLOOD UREA NITROGEN 24 MG/DL (7-18); BUN/CREATININE RATIO 10.4 (6.6-38.0); CHLORIDE 108 MMOL/L (99-107); CREATININE 2.31 MG/DL (0.40-0.90); GLUCOSE 98 MG/DL (70-104); MAGNESIUM 1.5 MG/DL (1.5-2.4); PHOSPHORUS 3.8 MG/DL (2.3-4.5); POTASSIUM 3.6 MMOL/L (3.5-5.1); SODIUM 144 MMOL/L (135-145); TOTAL CARBON DIOXIDE 28.2 MMOL/L (24-32); TOTAL PROTEIN 5.9 G/DL (6.4-8.2); eGFR 22 ML/MIN
--- NOTE | 2020-02-17 05:15 | NUR ---
Paged Dr Tesfaye PAGER ID: [phone] MESSAGE: [phone] Ruth Tweed FYI- pt removed blood bank wrist band and I re-ordered type and screen. Thanks! Elda FERRARA
--- NOTE | 2020-02-17 06:09 | NUR ---
Problems reprioritized. Patient report given, questions answered & plan of care reviewed with Isi FERRARA.
--- NOTE | 2020-02-17 06:45 | NUR ---
Patient in room PCU 3011. I have received report from Elda FERRARA and had the opportunity to ask questions and assume patient care.
[2020-02-17] MEDS: pantoprazole 40mg Tablet.DR PO SCH ×2 (08:00→20:31)
[2020-02-17] MEDS: K, MAG and/or Phos replacement - Verify level? MC SCH (08:00)
[2020-02-17] MEDS: methadone 10mg tablet PO SCH ×2 (08:07→20:32)
[2020-02-17] MEDS: FLUoxetine 20mg capsule PO SCH (08:07)
[2020-02-17] MEDS: CefTRIAXone/D5W-Rocephin 1gm 50 ML IV SCH (08:09)
[2020-02-17] MEDS: mineral oil/petrolatum, white cream 113gm jar TP SCH (08:12)
[2020-02-17] MEDS ORDERED: MIDAZolam 5mg/5ml vial ONE (12:37)
[2020-02-17] MEDS ORDERED: LIDOcaine Viscous 15ml cup ONE (12:37)
[2020-02-17] MEDS ORDERED: fentaNYL/PF 50MCG/1 ML 2ML syringe ONE (12:37)
--- NOTE | 2020-02-17 18:15 | NUR ---
Problems reprioritized. Patient report given, questions answered & plan of care reviewed with Elda FERRARA.
--- NOTE | 2020-02-17 18:31 | NUR ---
Patient in room PCU 3011. I have received report from Isi FERRARA and had the opportunity to ask questions and assume patient care.
[2020-02-17] MEDS: insulin Lispro (HumaLOG) vial - multi-dose SQ SCH (18:49)
[2020-02-17] MEDS: insulin glargine (Lantus) pen - multi-dose SQ SCH (21:19)
[2020-02-18 02:00] VITALS: BP 151/81
[2020-02-18 03:04] LABS: BASOPHILS % (AUTO) 0.2 % (0-1); EOSINOPHILS # (AUTO) 0.3 X10'3 (0-0.9); EOSINOPHILS % (AUTO) 3.7 % (0-6); HEMATOCRIT 22.7 % (35.0-45.0); HEMOGLOBIN 7.6 g/dl (12.0-16.0); LYMPHOCYTES # (AUTO) 2.5 X10'3 (1.1-4.8); LYMPHOCYTES % (AUTO) 35.6 % (21-51); MEAN CORPUSCULAR HGB CONC 33.6 g/dL (33.0-36.5); MEAN CORPUSCULAR VOLUME 83.2 FL (78-98); MONOCYTES # (AUTO) 0.5 X10'3 (0-0.9); MONOCYTES % (AUTO) 7.8 % (2-12); NEUTROPHILS # (AUTO) 3.7 X10'3 (1.8-7.7); NEUTROPHILS % (AUTO) 52.7 % (42-75); PLATELET COUNT 240 X10'3 (140-440); RED BLOOD COUNT 2.73 X10'6 (4.20-5.60); RED CELL DISTRIBUTION WIDTH 16.1 % (11.5-14.5); WHITE BLOOD COUNT 6.9 X10'3 (4.5-11.0)
[2020-02-18 03:18] LABS: ALANINE AMINOTRANSFERASE 18 U/L (12-78); ALBUMIN 1.7 G/DL (3.4-5.0); ALBUMIN/GLOBULIN RATIO 0.5 (1.1-1.5); ALKALINE PHOSPHATASE 105 IU/L (46-116); ANION GAP 8 (8-16); ASPARTATE AMINO TRANSFERASE 22 U/L (10-37); BILIRUBIN,TOTAL 0.2 MG/DL (0.1-1.0); BLOOD UREA NITROGEN 19 MG/DL (7-18); BUN/CREATININE RATIO 9.5 (6.6-38.0); CALCIUM 7.8 MG/DL (8.5-10.1); CHLORIDE 107 MMOL/L (99-107); CREATININE 1.99 MG/DL (0.40-0.90); GLUCOSE 94 MG/DL (70-104); MAGNESIUM 1.6 MG/DL (1.5-2.4); PHOSPHORUS 4.1 MG/DL (2.3-4.5); POTASSIUM 3.4 MMOL/L (3.5-5.1); SODIUM 143 MMOL/L (135-145); TOTAL CARBON DIOXIDE 28.5 MMOL/L (24-32); TOTAL PROTEIN 5.4 G/DL (6.4-8.2); eGFR 27 ML/MIN
[2020-02-18 06:00] VITALS: BP 174/90
--- NOTE | 2020-02-18 06:10 | NUR ---
Problems reprioritized. Patient report given, questions answered & plan of care reviewed with Chase FERRARA.
[2020-02-18] MEDS: K, MAG and/or Phos replacement - Verify level? MC SCH (08:00)
[2020-02-18] MEDS: pantoprazole 40mg Tablet.DR PO SCH (09:08)
[2020-02-18] MEDS: FLUoxetine 20mg capsule PO SCH (09:08)
[2020-02-18] MEDS: mineral oil/petrolatum, white cream 113gm jar TP SCH (09:09)
[2020-02-18] MEDS: CefTRIAXone/D5W-Rocephin 1gm 50 ML IV SCH (09:09)
[2020-02-18] MEDS: methadone 10mg tablet PO SCH (09:17)
[2020-02-18] MEDS: insulin Lispro (HumaLOG) vial - multi-dose SQ SCH ×2 (09:23→13:33)
[2020-02-18 11:00] VITALS: BP 168/89
[2020-02-18] MEDS ORDERED: FLUO-167 PO (13:49)
[2020-02-18] MEDS ORDERED: PANT40TA4 PO (13:49)
[2020-02-18] MEDS ORDERED: AMOX-419 PO (13:50)
[2020-02-18] MEDS: dextrose ORAL solution 15 GM/59 ML bottle PO PRN (15:19)
--- NOTE | 2020-02-18 15:20 | NUR ---
During patient discharge, she requested I recheck her blood sugar before she left. It was tested to be 45. She has been given the 30ml of Glucose oral drink. Will recheck in 15 minutes. If she tests in the normal range, she will leave and meet her ride in the parking lot.
--- NOTE | 2020-02-18 15:47 | NUR ---
Patient has been discharged. Brought to the parking lot in a wheelchair. She stood up out of the chair without issue.
== END 2020-02-18 15:36 | disposition home or self-care (01) | DRG 420 ==
LOC: ER 11:05 → ED HOLD 15:26 → ICU 2S 17:18 → PCU 3S 02-11 14:00
PROVIDERS: ATTEND Internal Medicine Critical Care Medicine
PROC: 30233N1 Transfusion of Nonautologous Red Blood Cells into Peripheral Vein, Percutaneous Approach (ICD-10-PCS; 2020-02-16)
PROC: 0DBC8ZX Excision of Ileocecal Valve, Via Natural or Artificial Opening Endoscopic, Diagnostic (ICD-10-PCS; principal; 2020-02-17)
PROC: 0DBL8ZX Excision of Transverse Colon, Via Natural or Artificial Opening Endoscopic, Diagnostic (ICD-10-PCS; 2020-02-17)
PROC: 0DB98ZX Excision of Duodenum, Via Natural or Artificial Opening Endoscopic, Diagnostic (ICD-10-PCS; 2020-02-17)
PROC: 0DB68ZX Excision of Stomach, Via Natural or Artificial Opening Endoscopic, Diagnostic (ICD-10-PCS; 2020-02-17)
DX: E10.10 Type 1 diabetes mellitus with ketoacidosis without coma (principal); F11.20 Opioid dependence, uncomplicated; F32.9 Major depressive disorder, single episode, unspecified; K64.8 Other hemorrhoids; N17.9 Acute kidney failure, unspecified; N39.0 Urinary tract infection, site not specified; D12.0 Benign neoplasm of cecum; N18.9 Chronic kidney disease, unspecified; R19.7 Diarrhea, unspecified; D12.3 Benign neoplasm of transverse colon; K29.70 Gastritis, unspecified, without bleeding; K31.89 Other diseases of stomach and duodenum; D50.0 Iron deficiency anemia secondary to blood loss (chronic); R19.5 Other fecal abnormalities; Z80.1 Family history of malignant neoplasm of trachea, bronchus and lung; Z82.49 Family history of ischemic heart disease and other diseases of the circulatory system; Z79.899 Other long term (current) drug therapy; Z98.891 History of uterine scar from previous surgery; Z88.5 Allergy status to narcotic agent; Z79.4 Long term (current) use of insulin
CPT/HCPCS: 36415; 36430; 36600; 43239; 45385; 70450; 71045; 71250; 73630; 74176; 76937; 80048; 80053; 80305; 81001; 82272; 82803; 82948; 83036; 83540; 83550; 83605; 83735; 84100; 84132; 84145; 84484; 85018; 85025; 85027; 85610; 85730; 86870; 86880; 86885; 86900; 86901; 86922; 87040; 87077; 87081; 87088; 87186; 87324; 87449; 93005; 94760; 96361; 96365; 96372; 97110; 97116; 97162; 97530; 99152; 99153; 99291; A4620; C1773; C9113; G0378; J0360; J0456; J0696; J1644; J1815; J2250; J2405; J3010; J3370; J3480; J3490; J7030; J7040; P9016; Q4081

== ENCOUNTER 2020-02-26 09:50 | Day surgery (SDC) | payer MEDICAID ==
[~2020-02-26 09:50] MED LIST changes: +AMOX-419 PO; -FLUO-1 PO; +FLUO-167 PO; +METH10SO PO; -METH5SOL PO; +PANT40TA4 PO
[2020-02-26] MEDS ORDERED: LIDOcaine 2% 5ml jelly ONE (11:21)
== END 2020-02-26 12:24 | disposition home or self-care (01) ==
LOC: WOUND CARE 09:50
PROVIDERS: ATTEND Nurse Practitioner
DX: E11.621 Type 2 diabetes mellitus with foot ulcer (principal); L97.412 Non-pressure chronic ulcer of right heel and midfoot with fat layer exposed; L97.422 Non-pressure chronic ulcer of left heel and midfoot with fat layer exposed; L84 Corns and callosities; E11.22 Type 2 diabetes mellitus with diabetic chronic kidney disease; N18.9 Chronic kidney disease, unspecified; I50.9 Heart failure, unspecified; E11.65 Type 2 diabetes mellitus with hyperglycemia; E11.40 Type 2 diabetes mellitus with diabetic neuropathy, unspecified; F32.9 Major depressive disorder, single episode, unspecified; F17.210 Nicotine dependence, cigarettes, uncomplicated; F41.9 Anxiety disorder, unspecified; Z88.5 Allergy status to narcotic agent; Z79.4 Long term (current) use of insulin; Z79.899 Other long term (current) drug therapy; Z86.14 Personal history of Methicillin resistant Staphylococcus aureus infection
CPT/HCPCS: 36416; 73630; 82948; 97597

== ENCOUNTER 2020-03-11 08:00 | Day surgery (SDC) | payer MEDICAID ==
[~2020-03-11 08:00] MED LIST changes: -AMOX-419 PO
[2020-03-11] MEDS ORDERED: LIDOcaine 2% 5ml jelly ONE (11:18)
== END 2020-03-11 12:52 | disposition home or self-care (01) ==
LOC: WOUND CARE 08:00
PROVIDERS: ATTEND Nurse Practitioner
DX: E11.621 Type 2 diabetes mellitus with foot ulcer (principal); L97.412 Non-pressure chronic ulcer of right heel and midfoot with fat layer exposed; L97.422 Non-pressure chronic ulcer of left heel and midfoot with fat layer exposed; L97.522 Non-pressure chronic ulcer of other part of left foot with fat layer exposed; L97.512 Non-pressure chronic ulcer of other part of right foot with fat layer exposed; E11.10 Type 2 diabetes mellitus with ketoacidosis without coma; L84 Corns and callosities; E11.22 Type 2 diabetes mellitus with diabetic chronic kidney disease; N18.9 Chronic kidney disease, unspecified; I50.9 Heart failure, unspecified; E11.65 Type 2 diabetes mellitus with hyperglycemia; E11.40 Type 2 diabetes mellitus with diabetic neuropathy, unspecified; F32.9 Major depressive disorder, single episode, unspecified; F17.210 Nicotine dependence, cigarettes, uncomplicated; F11.20 Opioid dependence, uncomplicated; F41.9 Anxiety disorder, unspecified; Z88.5 Allergy status to narcotic agent; Z79.4 Long term (current) use of insulin; Z79.899 Other long term (current) drug therapy; Z86.14 Personal history of Methicillin resistant Staphylococcus aureus infection
CPT/HCPCS: 36416; 73630; 82948; 87070; 87075; 87077; 87102; 87186; 97597; 97598

== ENCOUNTER 2020-04-01 12:31 | Day surgery (SDC) | payer MEDICAID ==
[2020-04-01] MEDS ORDERED: LIDOcaine 2% 5ml jelly ONE (13:15)
== END 2020-04-01 14:22 | disposition home or self-care (01) ==
LOC: WOUND CARE 12:31
PROVIDERS: ATTEND Nurse Practitioner
DX: E11.621 Type 2 diabetes mellitus with foot ulcer (principal); L97.412 Non-pressure chronic ulcer of right heel and midfoot with fat layer exposed; L97.422 Non-pressure chronic ulcer of left heel and midfoot with fat layer exposed; L97.512 Non-pressure chronic ulcer of other part of right foot with fat layer exposed; L97.522 Non-pressure chronic ulcer of other part of left foot with fat layer exposed; L84 Corns and callosities; E11.22 Type 2 diabetes mellitus with diabetic chronic kidney disease; N18.9 Chronic kidney disease, unspecified; I50.9 Heart failure, unspecified; E11.65 Type 2 diabetes mellitus with hyperglycemia; E11.40 Type 2 diabetes mellitus with diabetic neuropathy, unspecified; F32.9 Major depressive disorder, single episode, unspecified; F17.210 Nicotine dependence, cigarettes, uncomplicated; F41.9 Anxiety disorder, unspecified; Z88.5 Allergy status to narcotic agent; Z79.4 Long term (current) use of insulin; Z79.899 Other long term (current) drug therapy; Z86.14 Personal history of Methicillin resistant Staphylococcus aureus infection
CPT/HCPCS: 97597; 97598

== ENCOUNTER 2020-04-11 11:24 | Day surgery (SDC) | payer MEDICAID ==
[2020-04-11] MEDS ORDERED: LIDOcaine 2% 5ml jelly ONE ×2 (12:46)
[2020-04-11] MEDS ORDERED: dextrose ORAL solution 15 GM/59 ML bottle ONE (12:54)
== END 2020-04-11 14:02 | disposition home or self-care (01) ==
LOC: WOUND CARE 11:24
PROVIDERS: ATTEND Nurse Practitioner
DX: E11.621 Type 2 diabetes mellitus with foot ulcer (principal); L97.412 Non-pressure chronic ulcer of right heel and midfoot with fat layer exposed; L97.422 Non-pressure chronic ulcer of left heel and midfoot with fat layer exposed; L97.512 Non-pressure chronic ulcer of other part of right foot with fat layer exposed; L97.522 Non-pressure chronic ulcer of other part of left foot with fat layer exposed; L84 Corns and callosities; E11.22 Type 2 diabetes mellitus with diabetic chronic kidney disease; N18.9 Chronic kidney disease, unspecified; I50.9 Heart failure, unspecified; E11.40 Type 2 diabetes mellitus with diabetic neuropathy, unspecified; E11.65 Type 2 diabetes mellitus with hyperglycemia; F32.9 Major depressive disorder, single episode, unspecified; F41.9 Anxiety disorder, unspecified; F17.210 Nicotine dependence, cigarettes, uncomplicated; Z79.899 Other long term (current) drug therapy; Z86.14 Personal history of Methicillin resistant Staphylococcus aureus infection; Z79.4 Long term (current) use of insulin
CPT/HCPCS: 82948; 97597; 97598

== ENCOUNTER 2020-04-20 11:35 | Day surgery (SDC) | payer MEDICAID ==
[~2020-04-20 11:35] MED LIST changes: -PANT40TA4 PO; +PANT40TA54 PO
[2020-04-20] MEDS ORDERED: LIDOcaine 2% 5ml jelly ONE (12:28)
== END 2020-04-20 13:45 | disposition home or self-care (01) ==
LOC: WOUND CARE 11:35
PROVIDERS: ATTEND Nurse Practitioner
DX: E11.621 Type 2 diabetes mellitus with foot ulcer (principal); L97.412 Non-pressure chronic ulcer of right heel and midfoot with fat layer exposed; L97.422 Non-pressure chronic ulcer of left heel and midfoot with fat layer exposed; L97.512 Non-pressure chronic ulcer of other part of right foot with fat layer exposed; L97.522 Non-pressure chronic ulcer of other part of left foot with fat layer exposed; L84 Corns and callosities; E11.22 Type 2 diabetes mellitus with diabetic chronic kidney disease; N18.9 Chronic kidney disease, unspecified; I50.9 Heart failure, unspecified; E11.40 Type 2 diabetes mellitus with diabetic neuropathy, unspecified; E11.65 Type 2 diabetes mellitus with hyperglycemia; F32.9 Major depressive disorder, single episode, unspecified; F41.9 Anxiety disorder, unspecified; F17.210 Nicotine dependence, cigarettes, uncomplicated; Z79.899 Other long term (current) drug therapy; Z86.14 Personal history of Methicillin resistant Staphylococcus aureus infection; Z79.4 Long term (current) use of insulin
CPT/HCPCS: 97597; 97598

== ENCOUNTER 2021-08-09 12:36 | Emergency (ER) | payer MEDICAID ==
[~2021-08-09] VITALS: Ht 172.7 cm; Wt 63.6 kg
[2021-08-09 15:30] LABS: BASOPHILS # (AUTO) 0.1 X10'3 (0-0.2); EOSINOPHILS # (AUTO) 0.1 X10'3 (0-0.9); EOSINOPHILS % (AUTO) 1.7 % (0-6); HEMATOCRIT 29.1 % (35.0-45.0); HEMOGLOBIN 9.6 g/dl (12.0-16.0); LYMPHOCYTES # (AUTO) 1.4 X10'3 (1.1-4.8); LYMPHOCYTES % (AUTO) 21.4 % (21-51); MEAN CORPUSCULAR HEMOGLOBIN 30.8 PG (27.0-31.0); MEAN CORPUSCULAR VOLUME 93.2 FL (78-98); MEAN PLATELET VOLUME 6.6 FL (7.4-10.4); MONOCYTES # (AUTO) 0.5 X10'3 (0-0.9); MONOCYTES % (AUTO) 8.3 % (2-12); NEUTROPHILS # (AUTO) 4.3 X10'3 (1.8-7.7); NEUTROPHILS % (AUTO) 67.6 % (42-75); PLATELET COUNT 124 X10'3 (140-440); RED BLOOD COUNT 3.12 X10'6 (4.20-5.60); RED CELL DISTRIBUTION WIDTH 15.5 % (11.5-14.5); WHITE BLOOD COUNT 6.4 X10'3 (4.5-11.0)
[2021-08-09 15:35] LABS: CLARITY,URINE CLEAR (Clear); COLOR,URINE YELLOW (Yellow); GLUCOSE, URINE >=1000 mg/dl (Neg); KETONES,URINE NEGATIVE (Neg); LEUKOCYTE ESTERASE ,URINE NEGATIVE (Neg); NITRITES, URINE NEGATIVE (Neg); OCCULT BLOOD,URINE MODERATE (Neg); PROTEIN,URINE >=300 mg/dl (Neg); UROBILINOGEN,URINE 0.2 E.U/dL (0.2-1.0)
[2021-08-09 15:42] LABS: ALANINE AMINOTRANSFERASE 37 U/L (12-78); ALBUMIN/GLOBULIN RATIO 0.9 (1.1-1.5); ALKALINE PHOSPHATASE 114 IU/L (46-116); ANION GAP 13 (8-16); ASPARTATE AMINO TRANSFERASE 27 U/L (10-37); BILIRUBIN,TOTAL 0.6 MG/DL (0.1-1.0); BLOOD UREA NITROGEN 67 MG/DL (7-18); BUN/CREATININE RATIO 10.9 (6.6-38.0); CALCIUM 7.1 MG/DL (8.5-10.1); CHLORIDE 94 MMOL/L (99-107); CREATININE 6.13 MG/DL (0.40-0.90); ETHANOL < 0.010 GM/DL (0.0-0.010); POTASSIUM 4.7 MMOL/L (3.5-5.1); SODIUM 128 MMOL/L (135-145); TOTAL CARBON DIOXIDE 21.4 MMOL/L (24-32); TOTAL PROTEIN 6.4 G/DL (6.4-8.2); eGFR 7 ML/MIN
[2021-08-09 15:43] LABS: UA COLLECTION TYPE VOIDED
[2021-08-09 15:44] LABS: BACTERIA,URINE FEW /HPF (Neg); HYALINE CASTS 0-3 /LPF (NEGATIVE); MUCUS STRANDS FEW /LPF (Neg); RBC,URINE 0-2 /HPF (0-2); SQUAMOUS EPITHELIAL CELL,UR FEW /LPF (FEW); WBC,URINE 0-4 /HPF (0-4)
[2021-08-09 15:59] LABS: URINE AMPHETAMINE SCREEN NEGATIVE (Neg); URINE BARBITUATE SCREEN NEGATIVE (Neg); URINE BENZODIAZEPINES SCREEN NEGATIVE (Neg); URINE CANNABINOID SCREEN NEGATIVE (Neg); URINE COCAINE SCREEN NEGATIVE (Neg); URINE METHADONE SCREEN POSITIVE (Neg); URINE OPIATE SCREEN NEGATIVE (Neg); URINE PHENCYCLIDINE SCREEN NEGATIVE (Neg)
[2021-08-09 16:18] LABS: GLUCOSE 858 MG/DL (70-104)
[2021-08-09] MEDS ORDERED: insulin Lispro (HumaLOG) vial - multi-dose SQ SCH (16:35)
[2021-08-09] MEDS ORDERED: insulin regular, human 10 units/0.1 ml syringe SQ SCH ×2 (16:40→18:10)
[2021-08-09] MEDS ORDERED: insulin regular, human 10 units/0.1 ml syringe SQ ONE (16:46)
[2021-08-09 18:14] VITALS: BP 178/99
== END 2021-08-09 20:32 | disposition home or self-care (01) ==
LOC: ER 12:39
DX: E11.65 Type 2 diabetes mellitus with hyperglycemia (principal); R56.9 Unspecified convulsions; I12.9 Hypertensive chronic kidney disease with stage 1 through stage 4 chronic kidney disease, or unspecified chronic kidney disease; E11.22 Type 2 diabetes mellitus with diabetic chronic kidney disease; N18.9 Chronic kidney disease, unspecified; F32.9 Major depressive disorder, single episode, unspecified; F17.200 Nicotine dependence, unspecified, uncomplicated; F11.90 Opioid use, unspecified, uncomplicated; Z91.14 Patient's other noncompliance with medication regimen; Z87.01 Personal history of pneumonia (recurrent); Z86.2 Personal history of diseases of the blood and blood-forming organs and certain disorders involving the immune mechanism; Z86.14 Personal history of Methicillin resistant Staphylococcus aureus infection; Z98.890 Other specified postprocedural states; Z88.5 Allergy status to narcotic agent; Z79.4 Long term (current) use of insulin; Z79.899 Other long term (current) drug therapy
CPT/HCPCS: 36415; 71045; 80053; 80305; 80320; 81001; 82948; 85025; 93005; 96372; 99285; J1815

== ENCOUNTER 2023-01-22 15:52 | Emergency (ER) | payer MEDICAID ==
[~2023-01-22] VITALS: Ht 172.7 cm; Wt 70.9 kg
[2023-01-22 16:01] VITALS: BP 161/78
[2023-01-22 16:45] LABS: BASOPHILS # (AUTO) 0.1 X10'3 (0-0.2); BASOPHILS % (AUTO) 1.3 % (0-1); EOSINOPHILS # (AUTO) 0.3 X10'3 (0-0.9); EOSINOPHILS % (AUTO) 4.8 % (0-6); HEMATOCRIT 28.6 % (35.0-45.0); HEMOGLOBIN 9.6 g/dl (12.0-16.0); LYMPHOCYTES # (AUTO) 1.6 X10'3 (1.1-4.8); LYMPHOCYTES % (AUTO) 25.5 % (21-51); MEAN CORPUSCULAR HEMOGLOBIN 34.4 PG (27.0-31.0); MEAN CORPUSCULAR HGB CONC 33.7 g/dL (33.0-36.5); MEAN CORPUSCULAR VOLUME 102.2 FL (78-98); MEAN PLATELET VOLUME 6.9 FL (7.4-10.4); MONOCYTES # (AUTO) 0.5 X10'3 (0-0.9); MONOCYTES % (AUTO) 8.2 % (2-12); NEUTROPHILS # (AUTO) 3.8 X10'3 (1.8-7.7); NEUTROPHILS % (AUTO) 60.2 % (42-75); PLATELET COUNT 191 X10'3 (140-440); WHITE BLOOD COUNT 6.3 X10'3 (4.5-11.0)
[2023-01-22 17:01] LABS: ALANINE AMINOTRANSFERASE 25 U/L (12-78); ALBUMIN 3.7 G/DL (3.4-5.0); ALBUMIN/GLOBULIN RATIO 1.1 (1.1-1.5); ALKALINE PHOSPHATASE 93 IU/L (46-116); ANION GAP 12 (8-16); ASPARTATE AMINO TRANSFERASE 20 U/L (10-37); BILIRUBIN,TOTAL 0.5 MG/DL (0.1-1.0); BLOOD UREA NITROGEN 39 MG/DL (7-18); BUN/CREATININE RATIO 7.7 (10.0-20.0); CALCIUM 9.6 MG/DL (8.5-10.1); CHLORIDE 95 MMOL/L (99-107); CREATININE 5.06 MG/DL (0.40-0.90); GLUCOSE 333 MG/DL (70-104); LIPASE 65 U/L (73-393); POTASSIUM 4.8 MMOL/L (3.5-5.1); SODIUM 136 MMOL/L (135-145); TOTAL CARBON DIOXIDE 28.6 MMOL/L (24-32); TOTAL PROTEIN 7.2 G/DL (6.4-8.2); eGFR 9 ML/MIN
[2023-01-22 19:12] LABS: URINE HCG NEGATIVE (NEG)
[2023-01-22 19:15] LABS: COLOR,URINE YELLOW (Yellow); GLUCOSE, URINE >=1000 mg/dl (Neg); KETONES,URINE NEGATIVE (Neg); LEUKOCYTE ESTERASE ,URINE SMALL (Neg); NITRITES, URINE NEGATIVE (Neg); OCCULT BLOOD,URINE TRACE-INTACT (Neg); PH,URINE 7.5 (4.8-8.0); PROTEIN,URINE 100 mg/dl (Neg); UROBILINOGEN,URINE 0.2 E.U/dL (0.2-1.0)
[2023-01-22 19:29] LABS: UA COLLECTION TYPE CLN CATCH MIDSTREAM
[2023-01-22 19:30] LABS: CLARITY,URINE SLIGHTLY CLOUDY (Clear)
[2023-01-22 19:31] LABS: BACTERIA,URINE FEW /HPF (Neg); MUCUS STRANDS FEW /LPF (Neg); SQUAMOUS EPITHELIAL CELL,UR MODERATE /LPF (FEW)
[2023-01-22 19:32] LABS: FINE GRANULAR CAST 0-3 /LPF (NEGATIVE); TRANSITIONAL EPI CELLS,URINE FEW /HPF
--- NOTE | 2023-01-22 20:15 | NUR ---
Patient not in lobby
[2023-01-24] MEDS ORDERED: NITR-79 PO (13:53)
--- NOTE | 2023-01-24 14:05 | NUR ---
LEFT MESSAGE TO [facility] ABX RX PER DR ASHLEY REGARDING URINE CULTURE.
== END 2023-01-22 20:18 | disposition home or self-care (01) ==
LOC: ER 15:54
DX: K59.00 Constipation, unspecified (principal); I10 Essential (primary) hypertension; E11.9 Type 2 diabetes mellitus without complications; Z86.14 Personal history of Methicillin resistant Staphylococcus aureus infection; Z88.5 Allergy status to narcotic agent; Z88.8 Allergy status to other drugs, medicaments and biological substances; Z79.899 Other long term (current) drug therapy
CPT/HCPCS: 36415; 74176; 80053; 81001; 81025; 83690; 85025; 87077; 87088; 87186; 99284

== ENCOUNTER 2023-01-26 15:11 | Emergency (ER) | payer MEDICAID ==
[~2023-01-26] VITALS: Ht 172.7 cm; Wt 72.7 kg
[~2023-01-26 15:11] MED LIST changes: +NITR-79 PO
[2023-01-26 16:59] VITALS: BP 170/85
--- NOTE | 2023-01-26 17:19 | NUR ---
ASSISTED JOSE FERRARA WITH CHANGING PT INTO GOWN
[2023-01-26 17:49] LABS: BASOPHILS # (AUTO) 0.1 X10'3 (0-0.2); BASOPHILS % (AUTO) 1.4 % (0-1); EOSINOPHILS # (AUTO) 0.3 X10'3 (0-0.9); EOSINOPHILS % (AUTO) 5.6 % (0-6); LYMPHOCYTES # (AUTO) 1.3 X10'3 (1.1-4.8); LYMPHOCYTES % (AUTO) 24.9 % (21-51); MONOCYTES # (AUTO) 0.5 X10'3 (0-0.9); MONOCYTES % (AUTO) 9.2 % (2-12); NEUTROPHILS % (AUTO) 58.9 % (42-75); WHITE BLOOD COUNT 5.1 X10'3 (4.5-11.0)
[2023-01-26] MEDS ORDERED: CefTRIAXone/D5W-Rocephin 1gm 50 ML IV ONE (17:55)
[2023-01-26] MEDS ORDERED: azithromycin/NS 500mg/250ml 250 ML IV ONE (17:55)
[2023-01-26 18:00] LABS: ABG BASE EXCESS -7.4 mmol/L (-2.0-2.0); ABG HCO3 19.5 mmol/L (22.0-26.0); ABG OXYGEN SATURATION 92.3 % (94-97); ABG PCO2 (T) 45.5 mmHg (32.0-45.0); ABG PO2 (T) 78.7 mmHg (75.0-100.0); ALLEN'S TEST POSITIVE; FCOHb 2.4 % (0.0-3.9); FLOW 2 L/min; FMetHb 0.2 % (0.0-1.5); FO2Hb 89.9 % (94-97); PATIENT TEMPERATURE 36.8; TOTAL HEMOGLOBIN 8.2 G/dl (12.0-16.0)
[2023-01-26 18:13] LABS: ALANINE AMINOTRANSFERASE 20 U/L (12-78); ALBUMIN 3.4 G/DL (3.4-5.0); ALKALINE PHOSPHATASE 81 IU/L (46-116); ANION GAP 17 (8-16); ASPARTATE AMINO TRANSFERASE 11 U/L (10-37); BILIRUBIN,TOTAL 0.6 MG/DL (0.1-1.0); BLOOD UREA NITROGEN 77 MG/DL (7-18); BUN/CREATININE RATIO 8.9 (10.0-20.0); CALCIUM 9.4 MG/DL (8.5-10.1); CHLORIDE 88 MMOL/L (99-107); CREATININE 8.61 MG/DL (0.40-0.90); SODIUM 127 MMOL/L (135-145); TOTAL CARBON DIOXIDE 21.6 MMOL/L (24-32); TOTAL PROTEIN 6.7 G/DL (6.4-8.2); eGFR 5 ML/MIN
[2023-01-26 18:16] LABS: POTASSIUM 7.4 MMOL/L (3.5-5.1)
[2023-01-26 18:30] LABS: GLUCOSE 953 MG/DL (70-104)
[2023-01-26] MEDS ORDERED: albuterol 2.5 MG/3 ML nebule CONTNEB PRN (18:30)
[2023-01-26] MEDS ORDERED: sodium bicarbonate (8.4%) inj. 1 MEQ/ML ML IV ONE (18:30)
[2023-01-26] MEDS ORDERED: insulin regular, human 10 units/0.1 ml syringe IV ONE (18:30)
[2023-01-26] MEDS ORDERED: calcium chloride 100 MG/1 ML inj IV ONE (18:30)
[2023-01-26] MEDS ORDERED: normal saline 1000ML IV soln IVB ONE (18:35)
[2023-01-26 18:37] LABS: HEMOGLOBIN 8.7 g/dl (12.0-16.0); RED BLOOD COUNT 2.42 X10'6 (4.20-5.60)
[2023-01-26 18:38] LABS: MEAN CORPUSCULAR HEMOGLOBIN 35.9 PG (27.0-31.0); MEAN CORPUSCULAR VOLUME 99.1 FL (78-98)
[2023-01-26 18:39] LABS: MEAN CORPUSCULAR HGB CONC 36.2 g/dL (33.0-36.5); PLATELET COUNT 139 X10'3 (140-440); RED CELL DISTRIBUTION WIDTH 17.9 % (11.5-14.5)
[2023-01-26 18:40] LABS: MEAN PLATELET VOLUME 6.8 FL (7.4-10.4)
[2023-01-26 18:47] LABS: PLATELET ESTIMATE DECREASED
[2023-01-26 18:48] LABS: ANISOCYTOSIS 1+
[2023-01-26 18:50] LABS: SPHEROCYTES 2+
[2023-01-26] MEDS ORDERED: Insulin Reg/NS 100units/100mL 100 ML IV PRN (22:35)
[2023-01-26 22:48] LABS: ALBUMIN 3.5 G/DL (3.4-5.0); ANION GAP 16 (8-16); BLOOD UREA NITROGEN 77 MG/DL (7-18); BUN/CREATININE RATIO 8.7 (10.0-20.0); CALCIUM 10.3 MG/DL (8.5-10.1); CHLORIDE 94 MMOL/L (99-107); CREATININE 8.83 MG/DL (0.40-0.90); POTASSIUM 5.5 MMOL/L (3.5-5.1); SODIUM 134 MMOL/L (135-145); TOTAL CARBON DIOXIDE 23.9 MMOL/L (24-32); eGFR 5 ML/MIN
[2023-01-26 22:50] LABS: GLUCOSE 668 MG/DL (70-104)
== END 2023-01-26 23:00 | disposition short-term general hospital (02) ==
LOC: ER 15:11
DX: E11.10 Type 2 diabetes mellitus with ketoacidosis without coma (principal); J18.9 Pneumonia, unspecified organism; E11.22 Type 2 diabetes mellitus with diabetic chronic kidney disease; N18.6 End stage renal disease; Z99.2 Dependence on renal dialysis; Z91.158 Patient's noncompliance with renal dialysis for other reason; Z88.5 Allergy status to narcotic agent; Z88.8 Allergy status to other drugs, medicaments and biological substances; Z79.899 Other long term (current) drug therapy
CPT/HCPCS: 36415; 36600; 70450; 71045; 80048; 80053; 82803; 82948; 83605; 83735; 84145; 85008; 85018; 85025; 87040; 93005; 94640; 94644; 96365; 96366; 96368; 96375; 99291; J0456; J0696; J1815; J3490; J7030; 94760; A7015